=== PATIENT | female | born 1970 | race Caucasian/White ===

== ENCOUNTER 2019-05-30 12:49 | Outpatient (CLI) | payer MEDICARE, SELFPAY ==
--- NOTE | 2019-05-30 13:08 | ECG_ITS ---
Measurements Intervals [place] Rate: 59 P: 64 SD: 200 QRS: 58 QRSD: 109 T: 73 QT: 397 QTc: 395 Interpretive Statements SINUS BRADYCARDIA BORDERLINE AV CONDUCTION DELAY BORDERLINE ST ABNORMALITY- ANTEROLATERAL LEADS BORDERLINE ECG Electronically Signed On 05-30-2019 13:25:37 QC CHEMIST by Matt Mesa D.O.
== END 2019-05-30 12:50 | disposition home or self-care (01) ==
PROVIDERS: PCP Physician Assistant; Visit Provider Physician Assistant
DX: Z01.818 Encounter for other preprocedural examination (principal)
CPT/HCPCS: 93005

== ENCOUNTER 2019-11-14 17:29 | Emergency (ER) | payer MEDICARE, MEDICAID, SELFPAY ==
--- NOTE | ~2019-11-14 | XR_ITS ---
EXAMINATION: XR tibia fibula LT 2V DATE: 11/14/2019 18:14 INDICATION: Left lower leg pain and swelling. TECHNIQUE: 2 views of left tibia and fibula on 4 radiographs were obtained. COMPARISON: None. FINDINGS: Bone alignment is normal. No fracture. There is mild left knee osteoarthritis. IMPRESSION: 1. Mild left knee osteoarthritis. Reviewed, dictated and finalized at location A.
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
[2019-11-14 17:48] VITALS: BP 123/69; PULSE 89; RESP 18; TEMP 37.4; O2SAT 96
[2019-11-14] MEDS: NEOMYCIN/POLYMYXIN/BACITRACIN OINTMENT 15 GM TUBE 1 APPLIC TOPICAL (18:10)
== END 2019-11-14 18:49 | disposition home or self-care (01) ==
PROVIDERS: Emergency Provider Emergency Medicine; PCP Physician Assistant
DX: S80.12XA Contusion of left lower leg, initial encounter (principal); W22.8XXA Striking against or struck by other objects, initial encounter
CPT/HCPCS: 73590; 99283; A9270

== ENCOUNTER 2019-11-15 14:04 | Outpatient (CLI) | payer MEDICARE, MEDICAID, SELFPAY ==
--- NOTE | ~2019-11-15 | US_ITS ---
EXAMINATION:US venous doppler LE LT INDICATION:Left leg swelling TECHNIQUE: Multiple grayscale, color flow and Doppler images of the left lower extremity deep venous systems were obtained and reviewed. COMPARISON:No prior studies for comparison. FINDINGS: The common femoral, superficial femoral and popliteal veins demonstrate normal respiratory variation, augmentation and compressibility. Color flow is also seen within the posterior tibial, pe roneal, greater saphenous and profunda veins. IMPRESSION: 1: No lower extremity deep venous thrombosis. Reviewed, dictated and finalized at location B.
== END 2019-11-15 14:05 | disposition home or self-care (01) ==
LOC: CHSIMG 14:04
PROVIDERS: PCP Physician Assistant; Visit Provider Physician Assistant
DX: R60.0 Localized edema (principal)
CPT/HCPCS: 93971

== ENCOUNTER 2019-12-18 14:05 | Emergency (ER) | payer MEDICARE, MEDICAID, SELFPAY ==
[2019-12-18 14:39] VITALS: BP 160/70; PULSE 66; RESP 17; TEMP 36.4; O2SAT 95
[2019-12-18] MEDS: cefTRIAXone 1 GM VIAL IM (15:28)
[2019-12-18 15:43] LABS: Hematocrit 41.3 % (35.0-49.0); Hemoglobin 13.6 g/dL (12.0-15.0); Mean Corpuscular HGB Conc 32.9 g/dL (32.0-36.0); Mean Corpuscular Hemoglobin 30.8 pg (27.0-31.0); Mean Corpuscular Volume 93.4 fL (78.0-102.0); Platelet Count Result 175 K/mm3 (150-420); Red Blood Count 4.42 M/mm3 (4.20-5.40); White Blood Count 3.2 K/mm3 (4.8-10.8)
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
[2019-12-18 16:20] VITALS: RESP 15
== END 2019-12-18 16:21 | disposition home or self-care (01) ==
PROVIDERS: Emergency Provider Emergency Medicine; PCP Physician Assistant
DX: S81.802A Unspecified open wound, left lower leg, initial encounter (principal)
CPT/HCPCS: 36415; 85027; 87040; 96372; 99282; 99283; J0696

== ENCOUNTER 2021-06-24 18:58 | Emergency (ER) | payer OTHER, SELFPAY ==
--- NOTE | ~2021-06-24 | CT_ITS ---
EXAMINATION: CT lumbar spine wo con DATE: 06/24/2021 19:59 INDICATION: Low back pain TECHNIQUE: Computed tomography (CT) of the lumbar spine was performed without intravenous contrast. T he dose-length product (DLP) was 900.61 mGy-cm. Iterative reconstruction was used. COMPARISON: None FINDINGS: There is no fracture, dislocation, or subluxation. The vertebral body heights are normal. T here is moderate loss of intervertebral disc space height at L4-5 and mild loss of disc space height at L3-4. IMPRESSION: 1. Moderate lumbar spondylosis without acute findings or significant interval change. Reviewed, dictated and finalized at location F. ISION GRINDER EXTERNAL IMPRESSION: 1. Moderate lumbar spondylosis without acute findings or significant interval rosy barrett.
--- NOTE | ~2021-06-24 | CT_ITS ---
EXAMINATION: CT pelvis wo con DATE: 06/24/2021 20:00 INDICATION: Left lower back pain TECHNIQUE: Computed tomography (CT) of the pelvis was performed without intravenous contrast. The dos e-length product (DLP) was 900.61 mGy-cm. Automated exposure control and iterative reconstruction bobby hnique were employed. COMPARISON: None FINDINGS: Bone alignment is normal. There is no fracture. There is moderate spondylosis of the lumbar spine. There is a 3.7 x 3.6 cm calcified pedunculated fibroid projecting into the left adnexa. IMPRESSION: 1. No acute osseous abnormality. Reviewed, dictated and finalized at location F. ERCIAL TECHNICIAN
[2021-06-24 19:07] VITALS: BP 142/95; PULSE 84; RESP 16; TEMP 36.8; O2SAT 98
--- NOTE | 2021-06-24 19:38 | ED.BACK ---
HPI - Back Pain/Injury General Chief Complaint: Back Pain/Injury Stated Complaint: back injury Time Seen by Provider: 06/24/21 18:59 Source: patient and RN notes reviewed Mode of arrival: ambulatory Limitations: no limitations History of Present Illness MD elicited complaint: back pain, back injury and fall Pertinent past history: prior back pain and back surgery Onset (ago): day(s) (4) Timing: constant Severity: moderate Pain scale (0-10): 7 Similar Symptoms Previously: Yes Quality: dull and aching Location: lumbar spine, sacrum and left lower back Radiation: buttocks and left leg below the knee Exacerbating factors: movement Relieving factors: medication Context: fall Associated symptoms: denies other symptoms Work related injury: No Related Data Home Medications Medication Instructions Recorded Confirmed diclofenac sodium 75 mg PO BID 04/13/19 06/24/21 gabapentin 300 mg PO TID 04/13/19 06/24/21 levothyroxine 75 mcg PO DAILY 04/13/19 06/24/21 meloxicam 15 mg PO DAILY 04/13/19 06/24/21 Allergies Allergy/AdvReac Type Severity Reaction Status Date / Time alendronate sodium Allergy Unknown Unknown Verified 06/24/21 19:20 kiwi Allergy Unknown Unknown Verified 06/24/21 19:20 tramadol Allergy Unknown Unknown Verified 06/24/21 19:20 trazodone Allergy Unknown Unknown Verified 06/24/21 19:20 bee venom protein (honey bee) Allergy Unknown Verified 06/24/21 19:20 [bees] Review of Systems Review of Systems: All systems reviewed & are unremarkable except as noted in HPI and below PMFSH Past Medical History Medical History Anemia Arthritis Back pain Hypothyroidism Sciatica Family History Family History Mother Family history of diabetes mellitus in first degree relative, Onset Age: 60 Patient's mother is Social History Social History Smoking status: Heavy tobacco smoker Second hand tobacco smoke exposure: No Alcohol intake: never Exam Const: General: no acute distress and alert Nutritional Appearance: well nourished Orientation/consciousness: patient oriented x3 Limitations: no limitations HENMT: Head: normal to inspection Ears: external ears normal, TM's normal bilaterally and EAC's normal General nose exam: Normal external nose present and Normal nares present Face and sinus: sinuses nontender Mouth: Yes moist mucous membranes Eyes: Conjunctivae: conjunctivae normal Pupils: Equal, round and reactive pupils present EOM: EOMs intact bilaterally Neck: Neck: normal visual inspection and no lymphadenopathy Other: neck supple. Chest: Chest palpation & inspection: normal inspection of the chest Resp: Effort & Inspection: normal respiratory effort Auscultation: clear to auscultation bilaterally Cardio: Rate: regular rate Rhythm: regular rhythm GI: GI Palp: Yes Soft to palpation and No Tenderness to palpation present (GI) : General: Yes bladder normal to palpation and Yes no CVA tenderness Back/Spine/Pelvis: Back: no CVA tenderness Skin: General skin exam: normal color Rashes: no rashes Neuro: General: patient oriented x3, moves all extremities, no meningeal signs, no focal motor deficits and CN's II-XI intact bilaterally Extrem: General: normal to inspection and no pedal edema Psych: Appearance: grossly normal and well kempt Mental Status: mental status grossly normal Affect: normal affect Thought content: Yes Normal thought content present Course Course Emergency Course: Pt was stable in the ED. less painful. Reevaluation(s) Reevaluation #1: VSS. normal ambulation. Date: 06/24/21 Time: 19:55 Vital Signs Vital signs: Vital Signs Temperature 36.8 C 06/24/21 19:07 Pulse Rate 84 06/24/21 19:07 Respiratory Rate 16 06/24/21 19:07 Blood Pressure 142/95 H 06/24/21 19:07 Pulse O
[2021-06-24] MEDS: KETOROLAC (*BKC) 60 MG/2 ML VIAL IM (19:45)
[2021-06-24 20:57] VITALS: BP 137/93; PULSE 76; RESP 16; TEMP 36.7; O2SAT 96
== END 2021-06-24 21:02 | disposition home or self-care (01) ==
PROVIDERS: Emergency Provider Emergency Medicine; PCP Physician Assistant
DX: M54.30 Sciatica, unspecified side (principal); E03.9 Hypothyroidism, unspecified; F17.200 Nicotine dependence, unspecified, uncomplicated
CPT/HCPCS: 72131; 72192; 96372; 99284; J1885

== ENCOUNTER 2022-07-09 14:36 | Emergency (ER) | payer MEDICARE, MEDICAID, SELFPAY ==
[2022-07-09 15:53] VITALS: BP 147/88; PULSE 80; RESP 15; TEMP 36.6; O2SAT 98
[2022-07-09 16:25] LABS: Basophils Absolute Auto 0.1 K/mm3 (0.0-0.1); Basophils Percent Auto 0.7 % (0.2-1.2); Eosinophils Absolute Auto 0.1 K/mm3 (0-0.3); Eosinophils Percent Auto 0.9 % (0-4.4); Hematocrit 44.8 % (37.0-47.0); Immature Granulocyte Absolute 0.02 K/mm3 (0.00-0.031); Immature Granulocyte Percent A 0.2 % (0-0.5); Lymphocytes Absolute Auto 1.07 K/mm3 (0.9-3.2); Lymphocytes Percent Auto 12.4 % (18.3-44.2); Mean Corpuscular HGB Conc 31.3 g/dl (32-36); Mean Corpuscular Hemoglobin 28.5 pg (26-34); Mean Corpuscular Volume 91.2 fl (80-100); Mean Platelet Volume 10.8 fl (7.4-10.4); Monocytes Absolute Auto 0.4 K/mm3 (0.1-0.6); Monocytes Percent Auto 4.2 % (2.6-8.5); Neutrophils Percent Auto 81.6 % (45.5-73.1); Platelet Count Result 289 k/mm3 (150-375); Red Blood Count 4.91 M/mm3 (4.2-5.4); Red Cell Distribution Width 14.7 % (11.5-14.5); White Blood Count 8.6 K/mm3 (4.5-10.0)
[2022-07-09 16:30] LABS: Prothrombin Time 12.3 Seconds (11.1-14.7)
[2022-07-09 16:31] LABS: Partial Thromboplastin Time 25.7 SECONDS (22.3-36.8)
[2022-07-09 16:31] LABS: Alanine Aminotransferase 23 U/L (6-35); Albumin Level 4.7 g/dL (3.5-5.1); Alkaline Phosphatase 79 U/L (38-126); Anion Gap 6 mmol/L (8-16); Aspartate Amino Transferase 27 U/L (14-36); Bilirubin,Total 0.7 mg/dL (0.2-1.3); Blood Urea Nitrogen 19 mg/dL (7-17); Calcium 10.2 mg/dL (8.4-10.2); Carbon Dioxide 30 mmol/L (22-30); Chloride 103 mmol/L (98-107); Estimated CRCL calculation 66 ml/min; Estimated Glomerular Filt Rate > 60; Glucose 74 mg/dL (65-110); Lipase 62 U/L (23-300); Potassium 3.6 mmol/L (3.4-5.0); Sodium 139 mmol/L (137-145)
== END 2022-07-09 15:53 | disposition left against medical advice (07) ==
PROVIDERS: Emergency Provider Emergency Medicine; PCP Family Medicine
DX: R10.9 Unspecified abdominal pain (principal)
CPT/HCPCS: 36415; 80053; 83690; 85025; 85610; 85730; 99199

== ENCOUNTER 2022-07-10 08:23 | Emergency (ER) | payer MEDICARE, MEDICAID, SELFPAY ==
--- NOTE | ~2022-07-10 | CT_ITS ---
Non-contrast CT scan of the Abdomen and Pelvis Clinical indication: Abdominal pain Technique: 2.5 mm axial scans were obtained through the abdomen and pelvis without intravenous or or al contrast. Dose reduction technique was used on this scan by utilizing automated exposure control a nd iterative reconstruction technique. The dose-length product (DLP) was 503.02 mGy-cm. Findings: Images through the lung bases reveal no abnormalities. There is a moderate to large subcapsular fluid collection along the lateral margin of the spleen, wit h Hounsfield units in the range of 40, consistent with subcapsular hematoma. This collection measures approximately 7.4 x 5.0 x 7.4 cm in extent. The liver, kidneys, pancreas, gallbladder, and adrenals appear normal. There is no aortic aneurysm. There is no evidence of bowel obstruction. Sigmoid diverticulosis noted. There is a 6.6 x 4.9 x 8.7 c m hyperdense hematoma of the right rectus abdominis muscle. Images through the pelvis were performed. There is no evidence of ascites or lymphadenopathy. Urinary bladder unremarkable. 4.2 cm densely calcified exophytic fibroid noted. Questional small amount of h emorrhagic ascites in the pelvis. Impression: Moderate to large subcapsular hemorrhage/hematoma of the spleen. 6.6 x 4.9 x 8.7 cm right rectus abdominis intramuscular hematoma. Consider contrast enhanced CT/CT angiogram to assess for active extravasation at either hemorrhage, a nd/or underlying splenic laceration. Questionable minimal amount of hemorrhagic ascites in the pelvis. Uterine fibroid, as above. Case discussed with Dr. Lemos at the time of this reading. Reviewed, dictated and finalized at location . ESTRIAL ECOLOGIST Impression: Moderate to large subcapsular hemorrhage/hematoma of the spleen. 6.6 x 4.9 x 8.7 cm right rectus abdominis intramuscular hematoma. Consider contrast enhanced CT/CT angiogram to assess for active extravasation a t either hemorrhage, and/or underlying splenic laceration. Questionable minimal amount of hemorrhagic ascites in the pelvis. Uterine fibroid, as above. Case discussed with Dr. Lemos at the time of this reading.
[2022-07-10 08:23] VITALS: BP 145/94; PULSE 88; RESP 18; TEMP 36.4; O2SAT 100
--- NOTE | 2022-07-10 09:14 | ED.GENADULT ---
HPI - General Adult General Chief complaint: Skin/Abscess/Foreign Body Stated complaint: abdominal bruising Time Seen by Provider: 07/10/22 08:30 History of Present Illness HPI narrative: The patient is a 51-year-old woman who takes diclofenac on a daily basis for lower back pain. She has history of anemia. Also history of sciatica, hypothyroidism, and osteoarthritis. For the last 2 days, the patient has had right lower quadrant abdominal pain, associated now with bruising in the infraumbilical region that extends to the suprapubic region and down to the groin region centrally. No history of trauma or falls or heavy lifting. No history of spontaneous bruising in the past. She went to [facility] yesterday to get this evaluated, blood work was ordered but she left before being seen. Blood work reveals a normal hemoglobin yesterday of 14.0 with hematocrit of 44.8, normal white blood cell count of 8.6 The MCV is normal at 91, and the platelets are normal at 289. The PT PTT yesterday was normal. The CMP was unremarkable. Amylase and lipase yesterday were normal. She continues to have discomfort in the right lower quadrant. The bruising has not increased but is still present. He presents for further evaluation. No other associated symptoms such as nausea vomiting fevers or chills or UTI or URI symptoms. Related Data Home Medications Medication Instructions Recorded Confirmed diclofenac sodium 75 mg 75 mg PO BID 04/13/19 07/10/22 tablet,delayed release gabapentin 300 mg capsule 300 mg PO TID 04/13/19 07/10/22 levothyroxine 75 mcg tablet 75 mcg PO DAILY 04/13/19 07/10/22 cyclobenzaprine 10 mg tablet 10 mg PO TID 07/10/22 07/10/22 Allergies Allergy/AdvReac Type Severity Reaction Status Date / Time alendronate sodium Allergy Unknown Unknown Verified 07/09/22 14:38 kiwi Allergy Unknown Unknown Verified 07/09/22 14:38 tramadol Allergy Unknown Unknown Verified 07/09/22 14:38 trazodone Allergy Unknown Unknown Verified 07/09/22 14:38 bee venom protein (honey bee) Allergy Unknown Verified 07/09/22 14:38 [bees] Review of Systems Review of Systems: All systems reviewed & are unremarkable except as noted in HPI and below Constitutional: Constitutional: Reports as per HPI, Reports no additional constitutional complaints, Denies chills, Denies excessive sweating, Denies fatigue, Denies fever(s), Denies headache(s) and Denies weakness Eyes: Eyes: Reports as per HPI, Reports no additional eye complaints, Denies change in vision and Denies photophobia ENT: Reports system reviewed and no additional complaints, except as documented, Reports as per HPI, Denies dysphagia, Denies vertigo, Denies dizziness, Denies headache(s), Denies lip swelling, Denies nasal congestion, Denies sore throat, Denies throat swelling and Denies tongue swelling Cardiovascular: Cardiovascular: Reports as per HPI, Reports no additional cardiovascular complaints, Denies chest pain, Denies syncope, Denies rapid heart rate and Denies dyspnea Respiratory: Respiratory: Reports as per HPI, Reports no additional respiratory complaints, Denies chest congestion, Denies cough, Denies dyspnea and Denies wheezing Gastrointestinal: Gastrointestinal: Reports as per HPI, Reports no additional gastrointestinal complaints, Reports abdominal pain, Denies constipation, Denies dysphagia, Denies diarrhea, Denies nausea and Denies vomiting Genitourinary: Genitourinary: Reports as per HPI, Denies hematuria, Denies urinary frequency, Denies dysuria, Denies urinary incontinence and Denies urinary urgency Musculoskeletal: Musculoskeletal: Reports no additional musculoskeletal complaints, Reports back pain ( Chronic), Denies myalgias, Denies arthralgias, Denies joint swelling and Denies numbness Integumentary/Breasts: Skin/Breast: Reports system reviewed and no additional complaints, except as docu, Denies pruritus, Denies erythema, Denies rash, Denies skin ulcer and Reports unusual bruis
[2022-07-10 09:23] LABS: Basophils Absolute Auto 0.05 K/mm3 (0.00-0.10); Basophils Percent Auto 0.6 % (0.0-1.0); Eosinophils Absolute Auto 0.07 K/mm3 (0.02-0.50); Eosinophils Percent Auto 0.8 % (1.0-6.0); Hematocrit 41.2 % (35.0-49.0); Hemoglobin 12.9 g/dL (12.0-15.0); Immature Granulocyte Absolute 0.04 K/mm3 (0.00-0.00); Immature Granulocyte Percent A 0.5 % (0.0-0.0); Lymphocytes Absolute Auto 0.87 K/mm3 (1.10-4.50); Lymphocytes Percent Auto 9.8 % (18.0-42.0); Mean Corpuscular HGB Conc 31.3 g/dL (32.0-36.0); Mean Corpuscular Hemoglobin 28.5 pg (27.0-31.0); Mean Corpuscular Volume 91.2 fL (78.0-102.0); Mean Platelet Volume 10.4 fl (9.2-11.8); Monocytes Absolute Auto 0.49 K/mm3 (0.10-0.90); Monocytes Percent Auto 5.5 % (2.0-11.0); Neutrophils Absolute Auto 7.3 K/mm3 (1.7-7.2); Neutrophils Percent Auto 82.8 % (50.0-70.0); Platelet Count Result 254 K/mm3 (150-420); Red Blood Count 4.52 M/mm3 (4.20-5.40); Red Cell Distribution Width 14.6 % (11.6-14.4); White Blood Count 8.9 K/mm3 (4.8-10.8)
[2022-07-10 09:37] LABS: Alanine Aminotransferase 24 U/L (14-59); Albumin Level 3.8 g/dL (3.4-5.0); Alkaline Phosphatase 85 U/L (46-116); Amylase 52 U/L (25-115); Anion Gap 9 mmol/L (8-16); Aspartate Amino Transferase 19 U/L (15-37); Bilirubin,Total 0.6 mg/dL (0.00-1.00); Blood Urea Nitrogen 18 mg/dL (7-18); Calcium 9.2 mg/dL (8.5-10.1); Carbon Dioxide 28 mmol/L (21-32); Chloride 104 mmol/L (98-108); Estimated CRCL calculation 86 ml/min; Estimated Glomerular Filt Rate > 60; Glucose 122 mg/dL (70-99); Lipase 27 U/L (16-77); Osmolality Calculated 294 mOsm/kg (285-295); Potassium 3.7 mmol/L (3.5-5.1); Sodium 141 mmol/L (136-145); Total Protein 6.9 g/dL (6.4-8.2)
[2022-07-10 09:38] LABS: Partial Thromboplastin Time 26.5 SEC (23.90-30.70); Prothrombin Time 11.1 Seconds (9.50-12.10)
[2022-07-10 09:50] LABS: SPREG INTERNAL CONTROL Positive; Serum Qual hCG Negative
[2022-07-10 10:00] VITALS: BP 125/80; PULSE 76; RESP 16; O2SAT 95
[2022-07-10 10:17] LABS: Appearance Urine Slightly Cloudy (Clear); Bilirubin Urine Negative (Negative); Blood Urine Negative (Negative); Color Urine Light Yellow (Yellow); Glucose Urine UA Negative (Negative); Ketones Urine Negative (Negative); Leukocyte Esterase Ur Trace LEU/UL (Negative); Nitrate Urine Positive (Negative); Protein Urine Negative (Negative); Urobilinogen Urine 0.2 mg/dL (0.2-1.0); pH Urine 6.5 (5.0-8.0)
[2022-07-10 10:22] LABS: Add Urine Microscopic? YES; Bacteria Urine 4+ /hpf; RBC Urine None seen /hpf (0-2); Squamous Epithelial Cell Urine Moderate /hpf (Few)
[2022-07-10 10:25] LABS: SARS-CoV-2 Ag Negative (Negative)
--- NOTE | 2022-07-12 14:59 | PC.NURSE ---
final urine culture report reviewed. >100,000 E. coli isolated. pt was prescribed keflex at discharge. this is appropriate treatment per dr shetty. no change in plan of care.
--- NOTE | 2022-07-22 10:37 | PC.NURSE ---
addendum: 07-10-22 1045 PT SIGNED OUT AMA. PROVIDER--DR WALLER NOTIFIED. PT AND BOYFRIEND AWAITING TRANSFER TO [facility]. DECISION MADE TO LEAVE AMA. PT AND BOYFRIEND WALKING TOWARDS DOOR TO LEAVE. DISCUSSED WITH PT IMPORTANCE OF TRANSFER AND DIAGNOSIS CAN BE LIFE THREATENING. PT AND BOYFRIEND AT NURSES DESK, DR WALLER DISCUSSED AT [facility] RISKS AND BENEFITS OF SIGNING OUT AMA. PT AND BOYFRIEND VOICED THAT THEY HAD [employer] TICKETS FOR THE EVENING AND DID NOT WANT TO MISS THE EVENT. AFTER DISCUSSING WITH DR WALLER. CONTINUE TO WANT TO SIGN OUT AMA. AMA FORM FILLED OUT PER DR WALLER AND SIGNED. PT SIGNED AND WITNESSED PER THIS SURVEILLANCE DUAL RATE OFFICER. DR WALLER AND THIS SURVEILLANCE DUAL RATE OFFICER INSTRUCTED PT TO GO TO [facility] ER IMMEDIATELY IF ANY BLEEDING OR CHANGE IN CONDITION. ALSO INSTRUCTED PER DR WALLER TO STOP DICLOFENAC, PT VOICED UNDERSTANDING. [facility] NOTIFIED OF PT SIGNING OUT AMA.
== END 2022-07-10 10:50 | disposition left against medical advice (07) ==
PROVIDERS: Emergency Provider Emergency Medicine; PCP Family Medicine
DX: D73.5 Infarction of spleen (principal); N39.0 Urinary tract infection, site not specified; E03.9 Hypothyroidism, unspecified; F17.200 Nicotine dependence, unspecified, uncomplicated; Z20.822 Contact with and (suspected) exposure to COVID-19
CPT/HCPCS: 36415; 74176; 80053; 81001; 82150; 83690; 84703; 85025; 85610; 85730; 87077; 87086; 87088; 87186; 87426; 99284; C9803

== ENCOUNTER 2022-07-10 22:47 | Emergency (ER) | payer MEDICARE, MEDICAID, SELFPAY ==
--- NOTE | ~2022-07-10 | CT_ITS ---
EXAMINATION: CTA abdomen pelvis DATE: 07/11/2022 02:27 INDICATION: Left-sided abdominal pain. TECHNIQUE: Computed tomographic angiography (CTA) of the chest, abdomen and pelvis was performed with 125 mL Omnipaque-350 intravenous contrast. Additional 3D reconstructions utilizing rotating maximum intensity projection (MIP) were performed. Automated exposure control and iterative reconstruction te chnique were employed. The dose-length product was 922.49 mGy-cm. COMPARISON: None FINDINGS: Chest: Mild dependent atelectasis in the bilateral lower lobes and lingula. No pneumonia, pulmonary edema or pleural effusion. Heart size is normal. No pericardial or pleural effusion. Thoracic aorta is normal in caliber with no dissection. No pathologically enlarged thoracic lymphadenopathy. Mild to moderate thoracic spondylosis. Abdomen and pelvis: Liver, gallbladder, pancreas, bilateral adrenal glands and left kidney are normal. Small focal region of cortical scarring at the mid right kidney likely sequela of prior infection or infarction. No sig nificant interval change in a 7.7 x 6.7 x 5.0 cm loculated subcapsular hematoma along the posterolate ral margin of the spleen extending from a loop splenic laceration which measures 3 cm in depth. No ev ident active contrast extravasation. There is moderate colonic diverticulosis with a sigmoid predomin ance. There is no adjacent inflammatory change to suggest diverticulitis. Small bowel and appendix are normal. Also unchanged is a nonloculated small amount of hemoperitoneum in the cul-de-sac. 3.5 cm calcified fibroid seen posteriorly from the uterine fundus. Bladder is normal. Bilateral adnexa are unremarkable. 9.0 x 6.4 x 2.2 cm lenticular hematoma within the right rectus abdominous muscle also w ithout active contrast extravasation. Subcutaneous scarring in the anterior pelvic wall. No pathologi kirsten enlarged abdominal or pelvic lymphadenopathy. Moderate to severe spondylosis at L4-L5. IMPRESSION: 1. No significant change in an AAST grade 3 splenic laceration with 3 cm deep splenic laceration with moderate to large subcapsular hematoma. No active contrast extravasation. 2. Unchanged second hematoma within the right rectus abdominis muscle also without active extravasati on. 3. Unchanged small amount of hemoperitoneum in the cul-de-sac. 4. Calcified uterine fibroid. Reviewed, dictated and finalized at location A. ITECTURAL ASSOCIATE IMPRESSION: 1. No significant change in an AAST grade 3 splenic laceration with 3 cm deep s plenic laceration with moderate to large subcapsular hematoma. No active contra st extravasation. 2. Unchanged second hematoma within the right rectus abdominis muscle also with out active extravasation. 3. Unchanged small amount of hemoperitoneum in the cul-de-sac. 4. Calcified uterine fibroid.
[2022-07-10 22:55] VITALS: BP 149/94; PULSE 74; RESP 14; TEMP 36.4; O2SAT 93
[2022-07-10 23:09] VITALS: RESP 18
[2022-07-11] VITALS (32 sets, daily range): BP systolic 110–159; BP diastolic 72–92; PULSE 56–86; RESP 12–21; TEMP 36.6–37.2; O2SAT 91–100
[2022-07-11 00:34] LABS: Basophils Absolute Auto 0.1 K/mm3 (0.0-0.1); Basophils Percent Auto 0.8 % (0.2-1.2); Eosinophils Absolute Auto 0.2 K/mm3 (0-0.3); Eosinophils Percent Auto 3.7 % (0-4.4); Hematocrit 40.6 % (37.0-47.0); Hemoglobin 12.8 g/dL (12.0-15.0); Immature Granulocyte Absolute 0.02 K/mm3 (0.00-0.031); Immature Granulocyte Percent A 0.3 % (0-0.5); Lymphocytes Absolute Auto 1.05 K/mm3 (0.9-3.2); Mean Corpuscular HGB Conc 31.5 g/dl (32-36); Mean Corpuscular Hemoglobin 29.2 pg (26-34); Mean Corpuscular Volume 92.7 fl (80-100); Mean Platelet Volume 10.3 fl (7.4-10.4); Monocytes Absolute Auto 0.5 K/mm3 (0.1-0.6); Neutrophils Absolute Auto 4.3 K/mm3 (1.3-6.7); Neutrophils Percent Auto 70.2 % (45.5-73.1); Platelet Count Result 229 k/mm3 (150-375); Red Blood Count 4.38 M/mm3 (4.2-5.4); Red Cell Distribution Width 14.7 % (11.5-14.5); White Blood Count 6.2 K/mm3 (4.5-10.0)
[2022-07-11 00:43] LABS: Lactic Acid Reflex 0.6 mmol/L (0.7-2.0)
[2022-07-11 00:49] LABS: Prothrombin Time 12.8 Seconds (11.1-14.7)
[2022-07-11 00:50] LABS: Partial Thromboplastin Time 26.8 SECONDS (22.3-36.8)
[2022-07-11 01:28] LABS: Alanine Aminotransferase 20 U/L (6-35); Albumin Level 4.1 g/dL (3.5-5.1); Alkaline Phosphatase 79 U/L (38-126); Anion Gap 4 mmol/L (8-16); Aspartate Amino Transferase 25 U/L (14-36); Bilirubin,Total 0.6 mg/dL (0.2-1.3); Blood Urea Nitrogen 18 mg/dL (7-17); Calcium 8.9 mg/dL (8.4-10.2); Carbon Dioxide 26 mmol/L (22-30); Chloride 104 mmol/L (98-107); Estimated CRCL calculation 96 ml/min; Estimated Glomerular Filt Rate > 60; Glucose 117 mg/dL (65-110); Potassium 3.7 mmol/L (3.4-5.0); Sodium 134 mmol/L (137-145)
--- NOTE | 2022-07-11 02:03 | ED.GENADULT ---
HPI - General Adult General Chief complaint: Unspecified Stated complaint: back pain Time Seen by Provider: 07/10/22 23:40 History of Present Illness HPI narrative: Patient 51-year-old female who presents to the emergency department with chief complaint of possible splenic injury. The patient was seen earlier today at [place] patient was found to have a hematoma around the spleen and a abdominal wall hematoma. Patient reports that she was to be transferred to [facility] but left AMA from [place]. The patient came to our facility for reevaluation after her abdominal pain got worse. Related Data Home Medications Medication Instructions Recorded Confirmed diclofenac sodium 75 mg 75 mg PO BID 04/13/19 07/10/22 tablet,delayed release gabapentin 300 mg capsule 300 mg PO TID 04/13/19 07/10/22 levothyroxine 75 mcg tablet 75 mcg PO DAILY 04/13/19 07/10/22 cyclobenzaprine 10 mg tablet 10 mg PO TID 07/10/22 07/10/22 Allergies Allergy/AdvReac Type Severity Reaction Status Date / Time alendronate sodium Allergy Unknown Unknown Verified 07/10/22 23:00 kiwi Allergy Unknown Unknown Verified 07/10/22 23:00 tramadol Allergy Unknown Unknown Verified 07/10/22 23:00 trazodone Allergy Unknown Unknown Verified 07/10/22 23:00 bee venom protein (honey bee) Allergy Unknown Verified 07/10/22 23:00 [bees] diclofenac AdvReac Unknown Verified 07/10/22 23:00 Review of Systems Review of Systems: A 10 system review of systems was completed on the patient and is negative except for what is stated in the HPI. Nursing and ancillary documentation was reviewed. [facility] Past Medical History Medical History Anemia Arthritis Back pain Hypothyroidism Sciatica Family History Family History Mother Family history of diabetes mellitus in first degree relative, Onset Age: 60 Patient's mother is Social History Social History Smoking status: Heavy tobacco smoker Second hand tobacco smoke exposure: No Alcohol intake: never Exam Narrative: GENERAL: Well-appearing, well-nourished, and in no acute distress. HEAD: Normocephalic, atraumatic. EYES: PERRLA and EOMI. ENT: Nares clear, no rhinorrhea or epistaxis. Mucous membranes moist. NECK: Supple. CHEST: Clear to auscultation. No respiratory distress. HEART: Regular rate and rhythm. No murmur heard. Normal peripheral pulses. ABDOMEN: Soft, mild tenderness to palpation, nondistended, normal active bowel sounds. EXTREMITIES: Normal range of motion. No edema. SKIN: Warm, dry, no rash. There is bruising present in the suprapubic region NEURO: No focal deficits. Alert and oriented x3. PSYCH: Normal mood and affect. Course Vital Signs Vital signs: Vital Signs Temperature 36.4 C 07/10/22 22:55 Pulse Rate 74 07/10/22 22:55 Respiratory Rate 14 07/10/22 22:55 Blood Pressure 149/94 H 07/10/22 22:55 Pulse Oximetry 93 07/10/22 22:55 Oxygen Delivery Room Air 07/10/22 22:55 Temperature 37.2 C 07/11/22 04:47 Pulse Rate 79 07/11/22 04:47 Respiratory Rate 18 07/11/22 04:47 Blood Pressure 111/77 07/11/22 04:47 Pulse Oximetry 99 07/11/22 04:47 Oxygen Delivery Room Air 07/10/22 22:55 Medical Decision Making [facility] Narrative Medical decision making narrative: Differential diagnosis includes worsening splenic hematoma, worsening abdominal wall hematoma. Generalized abdominal pain gastroenteritis, Laboratory studies were ordered and reviewed patient's hemoglobin was currently 12.8 it was 12.9 when she was seen at the other facility and 14 a day ago. Patient had a normal lactate and normal coagulation studies CT scan of the abdomen pelvis under angiography technique showed no contrast extravasation there is an 8.5 x 4.8 x 7.9 fluid collection arou
[2022-07-11] MEDS: MORPHINE SULFATE (*CRX) 4 MG/ML INJ IV PUSH (03:40)
[2022-07-11 05:52] LABS: Influenza A QL RT-PCR Negative (Negative); Influenza B QL RT-PCR Negative (Negative); SARS-CoV-2 RNA PCR Negative
--- NOTE | 2022-07-11 10:17 | PC.NURSE ---
[facility] accepted transfer to [facility] ETA 1030 Trip #[id number]
== END 2022-07-11 10:58 | disposition short-term general hospital (02) ==
PROVIDERS: Emergency Provider Emergency Medicine; PCP Family Medicine
DX: S36.029A Unspecified contusion of spleen, initial encounter (principal); S36.892A Contusion of other intra-abdominal organs, initial encounter; X58.XXXA Exposure to other specified factors, initial encounter; D64.9 Anemia, unspecified; M19.90 Unspecified osteoarthritis, unspecified site; E03.9 Hypothyroidism, unspecified
CPT/HCPCS: 36415; 74174; 80053; 83605; 85025; 85610; 85730; 86850; 86900; 86901; 87636; 96374; 99285; J2270; J2405; Q9967

== ENCOUNTER 2022-07-29 10:42 | Outpatient (CLI) | payer MEDICARE, MEDICAID, SELFPAY ==
[2022-07-29 10:52] LABS: Hematocrit 47.9 % (35.0-49.0); Hemoglobin 15.4 g/dL (12.0-15.0); Mean Corpuscular HGB Conc 32.2 g/dL (32.0-36.0); Mean Corpuscular Hemoglobin 29.4 pg (27.0-31.0); Mean Corpuscular Volume 91.6 fL (78.0-102.0); Mean Platelet Volume 10.2 fl (9.2-11.8); Platelet Count Result 297 K/mm3 (150-420); Red Blood Count 5.23 M/mm3 (4.20-5.40); Red Cell Distribution Width 14.5 % (11.6-14.4)
[2022-07-29 11:59] LABS: Alanine Aminotransferase 28 U/L (14-59); Albumin Level 3.9 g/dL (3.4-5.0); Alkaline Phosphatase 83 U/L (46-116); Anion Gap 10 mmol/L (8-16); Aspartate Amino Transferase 19 U/L (15-37); Bilirubin,Total 0.2 mg/dL (0.00-1.00); Blood Urea Nitrogen 15 mg/dL (7-18); Calcium 9.3 mg/dL (8.5-10.1); Carbon Dioxide 26 mmol/L (21-32); Chloride 107 mmol/L (98-108); Cholesterol 195 mg/dL (0-200); Estimated Glomerular Filt Rate > 60; Glucose 92 mg/dL (70-99); HDL Direct 67 mg/dL (40-60); LDL Cholesterol Calculated 111 mg/dL (<130); Osmolality Calculated 296 mOsm/kg (285-295); Potassium 4.5 mmol/L (3.5-5.1); Sodium 143 mmol/L (136-145); Thyroid Stimulating Hormone 3.47 uIU/mL (0.36-3.74); Total Protein 6.9 g/dL (6.4-8.2); Triglycerides 83 mg/dL (0-150)
== END 2022-07-29 10:43 | disposition home or self-care (01) ==
LOC: CHSLAB 10:44
PROVIDERS: PCP Family Medicine; Visit Provider Nurse Practitioner Family
DX: E03.9 Hypothyroidism, unspecified (principal); D64.9 Anemia, unspecified
CPT/HCPCS: 36415; 80053; 80061; 84443; 85027

== ENCOUNTER 2022-07-31 07:56 | Outpatient (CLI) | payer MEDICARE, MEDICAID, SELFPAY ==
--- NOTE | ~2022-07-31 | US_ITS ---
US abdomen limited DATE: 07/31/2022 08:14 INDICATION: Splenic laceration follow-up TECHNIQUE: Real-time and color flow imaging of the spleen COMPARISON: 07/12/2019. CTA abdomen pelvis FINDINGS: Again noted is splenic laceration and hematoma. Hematoma size appears diminished since 07/11. IMPRESSION: Splenic laceration Reviewed, dictated and finalized at [facility]. Reviewed, dictated and finalized at location [facility]. IMPRESSION: Splenic laceration
== END 2022-07-31 07:57 | disposition home or self-care (01) ==
LOC: CHSIMG 07:58
PROVIDERS: PCP Family Medicine; Visit Provider Nurse Practitioner Family
DX: S36.039A Unspecified laceration of spleen, initial encounter (principal); S36.029A Unspecified contusion of spleen, initial encounter
CPT/HCPCS: 76705

== ENCOUNTER 2022-08-10 12:24 | Outpatient (CLI) | payer MEDICARE, MEDICAID, SELFPAY ==
--- NOTE | ~2022-08-10 | MM_ITS ---
EXAMINATION: MM screening raymundo BI w cesar HISTORY: Screening mammogram TECHNIQUE: Craniocaudal and mediolateral oblique 3-D tomosynthesis images were obtained and synthetic 2-D images were generated. CAD analysis was submitted and interpreted. COMPARISON: 12/12/2018, 11/19/2017, 11/13/2016 bilateral screening mammogram examinations BREAST PARENCHYMAL COMPOSITION: There are scattered areas of fibroglandular density. FINDINGS: There is no evidence of suspicious mass, calcification, or architectural distortion to sugg est malignancy in either breast. There has been no suspicious interval change. IMPRESSION: 1. No mammographic evidence of malignancy. 2. Recommend routine screening mammography in one year. BI-RADS Category 1: Negative Reviewed, dictated and finalized at location A.
== END 2022-08-10 12:25 | disposition home or self-care (01) ==
LOC: CHSIMG 12:25
PROVIDERS: PCP Family Medicine; Visit Provider Family Medicine
DX: Z12.31 Encounter for screening mammogram for malignant neoplasm of breast (principal)
CPT/HCPCS: 77063; 77067

== ENCOUNTER 2023-02-20 10:57 | Emergency (ER) | payer MEDICARE, MEDICAID, SELFPAY ==
--- NOTE | ~2023-02-20 | XR_ITS ---
XR hand RT min 3V 02/20/2023 11:31 Indication: Right hand pain Procedure: 3 views right hand Comparison: No prior studies for comparison. Findings: Comminuted mildly displaced extra-articular fracture involving the distal aspect of the fif th metacarpal. There is a nondisplaced extra-articular fracture proximal aspect of the fifth proximal phalanx. There is lucency involving the distal radius, likely related to remote trauma or degenerati ve change. Impression: 1: Acute fractures of the distal aspect of the right fifth metacarpal and proximal aspect of the fift h proximal phalanx. Reviewed, dictated and finalized at location A. Impression: 1: Acute fractures of the distal aspect of the right fifth metacarpal and proxi mal aspect of the fifth proximal phalanx.
[2023-02-20 10:57] VITALS: BP 121/92; PULSE 78; RESP 12; TEMP 36.8; O2SAT 98
--- NOTE | 2023-02-20 11:05 | ED.FALL ---
HPI - Fall General Chief Complaint: Fall Stated Complaint: fall injury; right hand pain Time Seen by Provider: 02/20/23 11:05 Source: patient Mode of arrival: ambulatory Limitations: no limitations History of Present Illness HPI Narrative: 52-year-old female, smoker with a history of chronic pain arthritis, sciatica anxiety and hypothyroidism had a fall last night when she tripped on the sidewalk. No loss of consciousness. She presents to the ER with -- lower lip laceration which is superficial -- right hand pain on the ulnar aspect -- left knee abrasion. able to bear weight. MD complaint: fall Onset (ago): day(s) ( Fell last night) Fall from: standing Fall witnessed: no Place fall occurred: street Loss of consciousness: none Prolonged down time: no Symptoms prior to fall: none Context: tripped/slipped Location of injury: face Location of injury - extremities: Left: knee and Right: hand Severity: moderate Quality: aching Related Data Home Medications Medication Instructions Recorded Confirmed gabapentin 300 mg capsule 300 mg PO QAM 11/10/22 02/20/23 Allergies Allergy/AdvReac Type Severity Reaction Status Date / Time alendronate sodium Allergy Unknown Unknown Verified 02/20/23 11:06 kiwi Allergy Unknown Unknown Verified 02/20/23 11:06 tramadol Allergy Unknown Unknown Verified 02/20/23 11:06 trazodone Allergy Unknown Unknown Verified 02/20/23 11:06 bee venom protein (honey bee) Allergy Unknown Verified 02/20/23 11:06 [bees] diclofenac AdvReac Unknown Verified 02/20/23 11:06 Review of Systems Review of Systems: All systems reviewed & are unremarkable except as noted in HPI and below Constitutional: Constitutional: Reports as per HPI and Reports no additional constitutional complaints Eyes: Eyes: Reports as per HPI and Reports no additional eye complaints ENT: Reports system reviewed and no additional complaints, except as documented and Reports as per HPI Comments: lower lip laceration Cardiovascular: Cardiovascular: Reports as per HPI and Reports no additional cardiovascular complaints Respiratory: Respiratory: Reports as per HPI and Reports no additional respiratory complaints Gastrointestinal: Gastrointestinal: Reports as per HPI and Reports no additional gastrointestinal complaints Musculoskeletal: Musculoskeletal: Reports no additional musculoskeletal complaints Comments: right hand and left knee pain abrasion of the left knee Integumentary/Breasts: Comments: superficial laceration of the lower lip left knee abrasion Neurologic: Reports system reviewed and no additional complaints, except as documented and Reports as per HPI Psychiatric: Psychiatric: Reports no additional psychiatric complaints and Reports as per HPI Endocrine: Endocrine: Reports no additional endocrine complaints and Reports as per HPI Hematologic/Lymphatic: Hematologic/Lymphatic: Reports no additional hematologic/lymphatic complaints and Reports as per HPI Allergic/Immunologic: Allergic/Immunologic: Reports no additional allergic/immunologic complaints and Reports as per HPI PMFSH Past Medical History Medical History Abdominal pain Adult BMI 26.0-26.9 kg/sq m Anemia Anxiety Arthritis Back pain Hypothyroidism Lumbar spondylosis Sciatica Surgical History Surgical History History of abdominoplasty Family History Family History Mother Family history of diabetes mellitus in first degree relative, Onset Age: 60 Patient's mother is Social History Social History Smoking status: Heavy tobacco smoker Second hand tobacco smoke exposure: No Alcohol intake: never Lack of Transportation: No Lack of Food: Sometimes True Current Housing: I Have
[2023-02-20 11:07] VITALS: BP 121/92; PULSE 78; RESP 12; TEMP 36.8; O2SAT 98
[2023-02-20] MEDS: ONDANSETRON HCL ODT 4 MG TABLET PO (11:57)
[2023-02-20] MEDS: HYDROmorphone HCL INJ (*CRX) 2 MG/ML VIAL 0.5 MG IM (11:58)
[2023-02-20 12:00] VITALS: BP 132/75; PULSE 85; RESP 16; TEMP 36.7; O2SAT 99
== END 2023-02-20 12:05 | disposition home or self-care (01) ==
PROVIDERS: Emergency Provider Internal Medicine Critical Care Medicine; PCP Family Medicine
DX: S62.91XA Unspecified fracture of right hand, initial encounter for closed fracture (principal); S01.511A Laceration without foreign body of lip, initial encounter; M25.562 Pain in left knee; E03.9 Hypothyroidism, unspecified; F17.200 Nicotine dependence, unspecified, uncomplicated; Z79.899 Other long term (current) drug therapy; W01.0XXA Fall on same level from slipping, tripping and stumbling without subsequent striking against object, initial encounter; Y92.410 Unspecified street and highway as the place of occurrence of the external cause
CPT/HCPCS: 29125; 73130; 96372; 99284; A4565; A9270; J1170

== ENCOUNTER 2023-04-13 13:45 | Outpatient (CLI) | payer MEDICARE, MEDICAID, SELFPAY ==
--- NOTE | ~2023-04-13 | MR_ITS ---
MRI of the lumbar spine Clinical History: Spondylosis Technique: Axial T2-weighted images, and sagittal T1-weighted, T2-weighted, and and T2 fat-sat images were acquired. COMPARISON: 06/22/2018 Findings: There is no fracture of the lumbar spine. There is minimal grade 1 anterolisthesis of L4 ov er L5. No suspicious bone marrow signal abnormality seen. There is reactive marrow edema about the L4 -L5 disc space due to underlying degenerative disc disease. At L1-L2 and L2-L3, there is no significant disc bulge or herniation. There are mild facet joint dege nerative changes. No spinal canal stenosis or neural foraminal narrowing at these levels. At L3-L4, there is mild diffuse disc bulge with mild facet arthropathy. No central canal stenosis. Th ere is mild bilateral neural foraminal narrowing. At L4-L5, there is severe degenerative disc change. Disc bulge and facet arthropathy are present, wit hout abby central canal stenosis. There is moderate to advanced right neural foraminal narrowing, an d moderate left neural foraminal narrowing. At L5-S1, there is minimal disc bulge and moderate facet arthropathy. No central canal stenosis or ne ural foraminal narrowing. Paravertebral soft tissues are unremarkable. Impression: Moderate to advanced degenerative spondylosis at L4-L5, as detailed above. Minimal grade 1 anterolisthesis of L4 over L5. Reviewed, dictated and finalized at [facility]. OBSERVER Impression: Moderate to advanced degenerative spondylosis at L4-L5, as detailed above. Minimal grade 1 anterolisthesis of L4 over L5.
--- NOTE | ~2023-04-13 | XR_ITS ---
Cervical Spine: AP, lateral, oblique, open-mouth views Clinical History: Pain, postprocedural state Findings: There is straightening of the normal cervical lordosis. There is fusion across the C5-C6 an d C6-C7 disc spaces. Remaining disc spaces demonstrate minimal degenerative change. There is probable left neural foraminal narrowing at C5-C6. Pre-vertebral soft tissues are unremarkable. Impression: Fusion from C5 to C7. Mild degenerative change, as above. Reviewed, dictated and finalized at location M. R TRANSPORT INSPECTOR Impression: Fusion from C5 to C7. Mild degenerative change, as above.
--- NOTE | ~2023-04-13 | MR_ITS ---
EXAMINATION: MR brain/brain stem wo con DATE: 04/13/2023 14:39 INDICATION: Memory loss. TECHNIQUE: Magnetic resonance imaging (MRI) of the brain and brainstem was performed without intraven ous contrast. COMPARISON: None. FINDINGS: There are scattered areas of nonspecific increased T2-weighted signal intensity in the cere bral white matter, which is within normal limits for the patient's age. There is no intracranial hemo rrhage, acute infarction, or abnormal intracranial mass lesion. The ventricles are normal in size. Th e paranasal sinuses are clear. The mastoid air cells are normal. The orbits are normal. IMPRESSION: 1. Normal aging brain. Reviewed, dictated and finalized at location A. UM ATTENDANT IMPRESSION: 1. Normal aging brain.
== END 2023-04-13 13:46 | disposition home or self-care (01) ==
PROVIDERS: PCP Family Medicine; Visit Provider Nurse Practitioner Family
DX: R68.89 Other general symptoms and signs (principal); Z98.890 Other specified postprocedural states; M47.816 Spondylosis without myelopathy or radiculopathy, lumbar region; R41.89 Other symptoms and signs involving cognitive functions and awareness; Z82.0 Family history of epilepsy and other diseases of the nervous system; Z98.1 Arthrodesis status; M43.06 Spondylolysis, lumbar region
CPT/HCPCS: 70551; 72052; 72148

== ENCOUNTER 2023-05-12 11:49 | Outpatient (CLI) | payer MEDICARE, MEDICAID, SELFPAY ==
--- NOTE | ~2023-05-12 | DEXA_ITS ---
Bone Density Report Name: ZAIDA HANKS Age: 52 Sex: Female Ethnicity: White Date of : 1970 Indication: postmenopausal; screening for osteoporosis; height loss; prior fracture; seizure disorder; Referring Provider: PRAMOD TORRES Study: Bone densitometry was performed. Exam Date: May 12, 2023 Accession number: [id number] Bone Density: Region BMD T-score Z-score Classification AP Spine(L1-L4) 0.856 -1.7 -0.7 Osteopenia Femoral Neck (Left) 0.735 -1.0 0.0 Normal Total Hip (Left) 0.853 -0.7 -0.1 Normal Femoral Neck (Right) 0.713 -1.2 -0.2 Osteopenia Total Hip (Right) 0.840 -0.8 -0.2 Normal Femoral Neck Mean 0.724 -1.1 -0.1 Osteopenia Total Hip Mean 0.846 -0.8 -0.1 Normal World Health Organization criteria for BMD impression classify patients as: Normal (T-score at or above -1.0), Osteopenia (T-score between -1.0 and -2.5), or Osteoporosis (T-score at or below -2.5). 10-year Fracture Risk(1): Major Osteoporotic Fracture 11% Hip Fracture 1.2% Reported Risk Factors: [place] (), Neck BMD=0.713, BMI=26.2, previous fracture, smoking (1) FRAX(R) Version 3.08. Fracture probability calculated for an untreated patient. Fracture probability may be lower if the patient has received treatment. Clinical Information Provided by Patient: Has had a low trauma fracture Smokes Has used the following medications: Fosamax (i.e. alendronate) Has the following medical conditions: Any Seizure Disorders Patient maximum height was 67 Menopause Age: 46 No regular weight bearing exercise Onset of menses at age 11 Number of children 2 Impression: The patient has low bone mass, based on the Total Spine T-score. The patient has risk factors, including: smoking, previous fracture. Discussion: BONE DENSITY IS LOW AT ONE OR MORE SKELETAL SITES. This patient's lowest T-score is low at one or more skeletal sites. It meets the World Health Organization's (WHO) criteria for ?low bone mass? (T-score between -1.0 and -2.5). The patient's 10-year risk of fracture as calculated by FRAX is less than the threshold where pharmacological therapy is recommended by the National Osteoporosis Foundation (NOF). However, all treatment decisions require clinical judgment and consideration of individual patient factors, including patient preferences, comorbidities, previous drug use, risk factors not captured in the FRAX model (e.g., frailty, falls, vitamin D deficiency, increased bone turnover, interval significant decline in bone density) and possible under or overestimation of fracture risk by FRAX. The patient should follow a healthful lifestyle (good nutrition with adequate calcium and vitamin D, and appropriate weight-bearing exercise). Follow-Up: Consider repeating this study in 2 to 3
== END 2023-05-12 11:50 | disposition home or self-care (01) ==
LOC: CHSIMG 11:51
PROVIDERS: PCP Family Medicine; Visit Provider Family Medicine
DX: S62.91XA Unspecified fracture of right hand, initial encounter for closed fracture (principal); Z78.0 Asymptomatic menopausal state; M85.89 Other specified disorders of bone density and structure, multiple sites
CPT/HCPCS: 77080

== ENCOUNTER 2023-08-12 12:01 | Outpatient (CLI) | payer MEDICARE, MEDICAID, SELFPAY ==
--- NOTE | ~2023-08-12 | MM_ITS ---
EXAMINATION: MM screening raymundo BI w cesar HISTORY: Screening mammogram TECHNIQUE: Craniocaudal and mediolateral oblique 3-D tomosynthesis images were obtained and synthetic 2-D images were generated. CAD analysis was submitted and interpreted. COMPARISON: August 10, 2022, December 12, 2018 bilateral screening mammogram examinations BREAST PARENCHYMAL COMPOSITION: There are scattered areas of fibroglandular density. FINDINGS: There is no evidence of suspicious mass, calcification, or architectural distortion to sugg est malignancy in either breast. There has been no suspicious interval change. IMPRESSION: 1. No mammographic evidence of malignancy. 2. Recommend routine screening mammography in one year. BI-RADS Category 1: Negative Reviewed, dictated and finalized at location A.
--- NOTE | ~2023-08-12 | XR_ITS ---
AP view of the pelvis and AP and lateral views of the bilateral hips Clinical history: Pain Findings: No acute fracture or dislocation is seen. Osseous alignment is anatomic. Bilateral hip and SI joint spaces are preserved. Calcified uterine fibroid present. Impression: No significant abnormality of the hips is seen. Calcified uterine fibroid. Reviewed, dictated and finalized at [facility]. Impression: No significant abnormality of the hips is seen. Calcified uterine fibroid.
== END 2023-08-12 12:02 | disposition home or self-care (01) ==
PROVIDERS: PCP Family Medicine; Visit Provider Family Medicine
DX: Z12.31 Encounter for screening mammogram for malignant neoplasm of breast (principal); M54.9 Dorsalgia, unspecified; M25.559 Pain in unspecified hip; D25.9 Leiomyoma of uterus, unspecified
CPT/HCPCS: 73521; 77063; 77067

== ENCOUNTER 2023-09-08 13:35 | Outpatient (CLI) | payer MEDICARE, MEDICAID, SELFPAY ==
--- NOTE | 2023-09-08 14:00 | NEURO_ITS ---
Impression: # Complains of numbness of feet. Not diabetic. # Bilateral pitting edema up to the knees.. # Axonal motor/sensory neuropathy. # Needle/EMG exam mildly abnormal with decreased motor unit potentials. # Clinical correlation recommended,because of the significant edema.. Nerve Conduction Studies Anti Sensory Summary Table Stim Site NR Peak (ms) P-T Amp (?V) Site1 Site2 Delta-P (ms) Dist (cm) Ritesh (m/s) Left Sup Fibular Anti Sensory (Ant Lat Mall) NO RESPONSE 14 cm NR 14 cm Ant Lat Mall 16.0 Right Sup Fibular Anti Sensory (Ant Lat Mall) NO RESPONSE 14 cm NR 14 cm Ant Lat Mall 16.0 Left Sural Anti Sensory (Lat Mall) NO RESPONSE Calf NR Calf Lat Mall 16.0 Right Sural Anti Sensory (Lat Mall) NO RESPONSE Calf NR Calf Lat Mall 16.0 Motor Summary Table Stim Site NR Onset (ms) O-P Amp (mV) Site1 Site2 Delta-0 (ms) Dist (cm) Ritesh (m/s) Left Peroneal Motor (Vastus Med) Ankle 4.1 0.5 Popit Ankle 9.7 41.0 42 Popit 13.8 0.2 Right Peroneal Motor (Vastus Med) Ankle 4.1 0.5 Popit Ankle 9.2 40.0 43 Popit 13.3 0.1 Left Tibial Motor (Abd Haile Brev) Ankle 4.2 4.4 Knee Ankle 9.5 44.0 46 Knee 13.7 2.2 Right Tibial Motor (Abd Haile Brev) Ankle 4.0 2.9 Knee Ankle 9.3 44.0 47 Knee 13.3 1.2 F Wave Studies NR F-Lat (ms) L-R F-Lat (ms) Left Peroneal (Mrkrs) (EDB) 56.49 0.94 Right Peroneal (Mrkrs) (EDB) 55.56 0.94 Left Tibial (Mrkrs) (Abd Hallucis) 56.41 1.09 Right Tibial (Mrkrs) (Abd Hallucis) 55.32 1.09 EMG Side Muscle Nerve Root Ins Act Fibs Amp Dur Recrt Comment Right AntTibialis Dp Br Fibular L4-5 Nml Nml Nml Nml +1 Right Gastroc Tibial S1-2 Nml Nml Nml Nml Nml Right Fibularis Long Sup Br Fibular L5-S1 Nml Nml Nml Nml Nml Right Flex Dig Long Tibial L5-S2 Nml Nml Nml Nml Nml Right Ext Dig Brev Dp Br Fibular L5, S1 Nml Nml Nml Nml Nml Left AntTibialis Dp Br Fibular L4-5 Nml Nml Nml Nml +1 Left Gastroc Tibial S1-2 Nml Nml Nml Nml Nml Left Fibularis Long Sup Br Fibular L5-S1 Nml Nml Nml Nml Nml Left Flex Dig Long Tibial L5-S2 Nml Nml Nml Nml Nml Left Ext Dig Brev Dp Br Fibular L5, S1 Nml Nml Nml Nml Nml MTDD
== END 2023-09-08 13:36 | disposition home or self-care (01) ==
LOC: ANHNEURO 13:38
PROVIDERS: PCP Family Medicine; Visit Provider Anesthesiology Pain Medicine
DX: R22.43 Localized swelling, mass and lump, lower limb, bilateral (principal); M48.062 Spinal stenosis, lumbar region with neurogenic claudication; R94.131 Abnormal electromyogram [EMG]
CPT/HCPCS: 95886; 95910

== ENCOUNTER 2023-11-22 14:05 | Outpatient (CLI) | payer MEDICARE, MEDICAID, SELFPAY ==
--- NOTE | ~2023-11-22 | XR_ITS ---
XR chest 2V 11/22/2023 14:51 Indication: Dyspnea Procedure: 2 view chest Comparison: Comparison to multiple prior studies sequentially, with oldest reviewed study dated 10/2015. Findings: Left basilar airspace disease may represent atelectasis or pneumonia. No pleural effusion. Heart size normal. Right lung clear. No acute osseous abnormality. Impression: 1: Left basilar airspace disease may represent atelectasis or pneumonia. Reviewed, dictated and finalized at location B. Impression: 1: Left basilar airspace disease may represent atelectasis or pneumonia.
--- NOTE | 2023-11-22 14:34 | ECG_ITS ---
Test Date: 2023-11-22 14:39:28 Measurements Intervals [place] Rate: 69 P: 60 CA: 184 QRS: 39 QRSD: 108 T: 79 QT: 403 QTc: 432 Interpretive Statements SINUS RHYTHM LOW QRS VOLTAGE IN PRECORDIAL LEADS NONSPECIFIC ST & T-WAVE ABNORMALITY- DIFFUSE LEADS BASELINE WANDER- I, II, AVR, AVL, AVF BORDERLINE ECG No previous ECG available for comparison Electronically Signed On 11-22-2023 14:41:03 CDT by Matt Mesa D.O.
[2023-11-22 14:51] LABS: Hematocrit 47.3 % (37.0-47.0); Hemoglobin 15.5 g/dL (12.0-15.0); Mean Corpuscular HGB Conc 32.8 g/dl (32-36); Mean Corpuscular Hemoglobin 29.8 pg (26-34); Mean Platelet Volume 10.1 fl (7.4-10.4); Platelet Count Result 252 k/mm3 (150-375); Red Cell Distribution Width 12.6 % (11.5-14.5)
[2023-11-22 14:55] LABS: Partial Thromboplastin Time 26.4 Seconds (22.3-36.8)
[2023-11-22 15:01] LABS: Anion Gap 10 mmol/L (4-12); Blood Urea Nitrogen 16 mg/dL (7-17); Calcium 9.2 mg/dL (8.4-10.2); Carbon Dioxide 21 mmol/L (22-30); Chloride 107 mmol/L (98-107); Estimated Glomerular Filt Rate > 60; Glucose 148 mg/dL (65-110); Potassium 3.9 mmol/L (3.4-5.0); Sodium 138 mmol/L (137-145)
== END 2023-11-22 14:06 | disposition home or self-care (01) ==
LOC: ANHLAB 14:13
PROVIDERS: PCP Family Medicine; Visit Provider Anesthesiology Pain Medicine
DX: Z01.818 Encounter for other preprocedural examination (principal); D68.9 Coagulation defect, unspecified; R91.8 Other nonspecific abnormal finding of lung field; R94.31 Abnormal electrocardiogram [ECG] [EKG]
CPT/HCPCS: 36415; 71046; 80048; 85027; 85610; 85730; 93005

== ENCOUNTER 2023-11-23 05:52 | Day surgery (SDC) | payer MEDICARE, MEDICAID, SELFPAY ==
[2023-11-15 12:09] VITALS: BMI 24.5
[2023-11-23] VITALS (8 sets, daily range): BP systolic 118–153; BP diastolic 84–96; PULSE 68–89; RESP 14–20; TEMP 36.2–36.6; O2SAT 95–100
--- NOTE | ~2023-11-23 | XR_ITS ---
XR fluoroscopy no charge Indication: Percutaneous transpedicular intraosseous basivertebral nerve ablation TECHNIQUE: Fluoroscopy used during Percutaneous transpedicular intraosseous basivertebral nerve abla tion performed by [Darrius Frost MD] on 11/23/2023. 312 seconds of fluoroscopy with 47 fluorosc opic images captured. FINDINGS: Correlate with procedure note. IMPRESSION: Fluoroscopy used during Percutaneous transpedicular intraosseous basivertebral nerve abla tion. Reviewed, dictated and finalized at location B. IMPRESSION: Fluoroscopy used during Percutaneous transpedicular intraosseous ba sivertebral nerve ablation.
--- NOTE | 2023-11-23 05:27 | PM.HPGS ---
History of Present Illness History of Present Illness Consent: Risks, benefits, and alternatives have been discussed and questions answered. Patient agrees to proceed with procedure. 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 Review of Systems Review of Systems: Patient denies any new infectious, allergic, cardiopulmonary, neurologic or constitutional symptoms or changes in activity tolerance or exercise capacity including new or progressive SOB/TORRES, peripheral edema, productive cough, dysuria, nausea/vomiting, diarrhea, weight change, fevers/chills/night sweats, new or progressive neurologic deficit, cognitive or mood changes since last seen, except as documented in the HPI. All systems reviewed & are unremarkable except as noted in HPI and below PMFSH Past Medical History Medical History Abdominal pain Adult BMI 26.0-26.9 kg/sq m Anemia Anxiety Arthritis Back pain BMI 24.0-24.9, adult Hypothyroidism Lumbar spondylosis Sciatica Surgical History Surgical History History of abdominoplasty Family History Family History Mother Family history of diabetes mellitus in first degree relative, Onset Age: 60 Patient's mother is Social History Social History (Updated 09/20/23 @ 15:31 by Thao Stewart CMA) Smoking packs per day: 1 Smoking cigarettes per day: 20.0 Years smoked: 30 Smoking pack-years: 30.00 Smoking status: Current every day smoker Tobacco type: cigarettes Second hand tobacco smoke exposure: No Alcohol intake: current Alcohol use details: occasionally Substance use: never Substance use type: does not use Do You Feel Safe in your Home?: Yes Lack of Transportation: No Lack of Food: Sometimes True Current Housing: I Have Housing Concerned About Future Housing: No Difficulty Paying Gas/Electric Bills: No Difficulty Paying for Meds: No Currently Unemployed: No Education: High School Diploma/GED Difficulty w/ Childcare or Family Care: No Living arrangements: with family Spiritual care concerns: No Meds Home Medications and Allergies Home Medications Medication Instructions Recorded Confirmed Type acetaminophen 300 mg-codeine 30 mg 1 tablet PO Q6H PRN pain #120 tabs 07/29/23 11/15/23 Rx tablet levothyroxine 75 mcg tablet 75 mcg PO DAILY #90 tabs 11/03/23 11/15/23 Rx cyclobenzaprine 10 mg tablet 10 mg PO TID 11/15/23 11/15/23 History gabapentin 300 mg capsule 300 mg PO TID 11/15/23 11/15/23 History Allergies Allergy/AdvReac Type Severity Reaction Status Date / Time alendronate sodium Allergy Unknown Unknown Verified 11/15/23 12:05 kiwi Allergy Unknown Unknown Verified 11/15/23 12:05 tramadol Allergy Unknown Unknown Verified 11/15/23 12:05 trazodone Allergy Unknown Unknown Verified 11/15/23 12:05 bee venom protein (honey bee) Allergy Unknown Verified 11/15/23 12:05 [bees] diclofenac AdvReac Unknown Verified 11/15/23 12:05 Exam Narrative: The patient's physical exam is essentially unchanged from prior examination on 09/20/2023. Specifically, patient demonstrates normal lung capacity, tidal volume and respiratory rate without wheezes, crackles, rales or rubs. Heart rate and rhythm are regular without murmurs, gallops or rubs. No JVD. Pulses 2+ globally
--- NOTE | 2023-11-23 05:31 | WPDHPUPDATE1 ---
History and Physical Update Update Date/Time: 11/23/23 05:31 History and Physical has been reviewed, including an updated exam of the patient. There are NO changes in the patient's condition. Risks, benefits, and alternatives have been discussed and questions answered. Patient agrees to proceed with procedure.
--- NOTE | 2023-11-23 05:33 | W.PM.PROC2 ---
Procedure Note - Detailed Date of Procedure 11/23/23 Pre-op Diagnosis Vertebrogenic Low Back Pain Post-op Diagnosis Same Procedure Performed Percutaneous transpedicular intraosseous basivertebral nerve thermal radiofrequency ablation (Intracept procedure) at L4, L5, S1 under fluoroscopic guidance. Surgeon Darrius Frost MD Anesthesia General (GETA] in the [prone] position with infiltration of local anesthetic. ) Description of Procedure INDICATION FOR PROCEDURE: Patient has Modic-type I/II inflammatory degenerative changes of the endplates supplied by the basivertebral nerve at each level listed (as documented on recent MRI) resulting in [id number] chronic axial low back pain that is aggravated by activity. They are significantly limited in their daily and/or work-related activities as a result, including sitting, standing, lifting/carrying and sleeping, with failure to respond to and/or tolerate extensive efforts at more conservative management (i.e. oral and topical analgesics including NSAIDs, acetaminophen and opioids, Physical Therapy and modalities, time/rest, interventional procedures/corticosteroid injections) for greater than 6 months prior to today's procedure establishing medical necessity for this well-studied and FDA-approved pain-relieving procedure. INFORMED CONSENT: Procedure was discussed in detail with the patient at a previous visit and at the time of surgery. During this discussion, the risks, benefits, and alternatives to the procedure, including doing nothing, were thoroughly described to the patient, who expressed explicit understanding and consent to proceed. Specific risks discussed with the patient included, but were not limited to the risk of serious local or systemic infection, skin burn/scarring, major or minor bleeding/bruising, allergic reaction to medications or materials, inadvertent lung or other organ injury, new or worsening spinal fracture, inadvertent thermal or mechanical nerve or spinal cord injury resulting in increased pain, weakness, numbness or loss of bowel or bladder control, the need for repeat or additional surgery, inadvertent dural puncture resulting in acute or chronic CSF leak and post-dural puncture headache, failure to treat pain, and risks associated with general anesthesia in the prone position including eye, dental, joint, nerve, spine or soft tissue injury/pain related to positioning, heart attack, respiratory failure, aspiration, pneumonia, DVT/PE or thrombosis, hemorrhagic or ischemic stroke, hypoxia, hypo- or hypertension, seizure, coma and . Patient understands these risks and agrees that the opportunity for benefit outweighs the potential risk of harm. Procedure specific informed consent form was read, reviewed, signed by the patient and surgeon and witnessed in the pre-operative area. All pertinent questions were asked and answered to the patient's satisfaction. Surgical site was pre-treated with chlorhexidine wipes. All materials required for the procedure were available and site and side of procedure was marked prior to procedure start. Appropriate timeout was conducted by all participants in the OR (patient's ID, procedure to be performed, procedure site and side, allergies and appropriate medications including pre-operative antibiotics were verified) prior to incision. PROCEDURE IN DETAIL: After full informed consent and adequate IV access was obtained without difficulty; the patient was escorted to the procedural suite. ASA standard monitors were applied and utilized throughout the case. Prophylactic antibiotics were administered prior to procedure start. GETA was initiated without difficulty or event. Eyes were protected. Patient was converted to the prone position in optimal flexion using pillows under the abdomen, hips and ankles. Pressure points were padded, cervical spine and joints were placed in neutral position. Eyes, breasts and genitals were evaluated and protected as
--- NOTE | 2023-11-23 07:28 | WPDANESEPPF ---
Anes - Initial Pre Proc Eval Procedure: Operation Date: 11/23/23 07:30 Proposed Procedures p Percutaneous Transpedicular Intraosseous Basivertebral Nerve Ablation L4, L5, S1 Under Fluoroscopic Guidance - Darrius Frost MD Date/Time: 11/23/23 07:28 Surgeon: Darrius Frost MD Pre Op Diagnosis: Vertebrogenic Low Back Pain Patient Data Age: 53 Gender: F Height: 1.73 m Weight: 81.3 kg Last Vital Signs Temp 36.6 C 11/23/23 06:18 Pulse 68 11/23/23 06:18 Resp 15 11/23/23 06:18 BP 131/86 11/23/23 06:18 Pulse Ox 100 11/23/23 06:18 O2 Del Method Room Air 11/23/23 06:18 Allergies Allergy/AdvReac Type Severity Reaction Status Date / Time alendronate sodium Allergy Unknown Unknown Verified 11/23/23 06:16 kiwi Allergy Unknown Unknown Verified 11/23/23 06:16 tramadol Allergy Unknown Unknown Verified 11/23/23 06:16 trazodone Allergy Unknown Unknown Verified 11/23/23 06:16 bee venom protein (honey bee) Allergy Unknown Verified 11/23/23 06:16 [bees] diclofenac AdvReac Unknown Verified 11/23/23 06:16 Home Medications Medication Instructions Recorded Confirmed Type acetaminophen 300 mg-codeine 30 mg 1 tablet PO Q6H PRN pain #120 tabs 07/29/23 11/23/23 Rx tablet levothyroxine 75 mcg tablet 75 mcg PO DAILY #90 tabs 11/03/23 11/23/23 Rx cyclobenzaprine 10 mg tablet 10 mg PO TID 11/15/23 11/23/23 History gabapentin 300 mg capsule 300 mg PO TID 11/15/23 11/23/23 History Patient hx anesthesia problems: none Family hx anesthesia problems: none Results Review: All pre-operative results and documents have been reviewed as part of the pre-operative evaluation. [facility] Past Medical History Medical History Abdominal pain Adult BMI 26.0-26.9 kg/sq m Anemia Anxiety Arthritis Back pain BMI 24.0-24.9, adult Hypothyroidism Lumbar spondylosis Sciatica Surgical History Surgical History History of abdominoplasty Family History Family History Mother Family history of diabetes mellitus in first degree relative, Onset Age: 60 Patient's mother is Social History Social History Smoking packs per day: 1 Smoking cigarettes per day: 20.0 Years smoked: 30 Smoking pack-years: 30.00 Smoking status: Current every day smoker Tobacco type: cigarettes Second hand tobacco smoke exposure: No Alcohol intake: current Alcohol use details: occasionally Substance use: never Substance use type: does not use Do You Feel Safe in your Home?: Yes Lack of Transportation: No Lack of Food: Sometimes True Current Housing: I Have Housing Concerned About Future Housing: No Difficulty Paying Gas/Electric Bills: No Difficulty Paying for Meds: No Currently Unemployed: No Education: High School Diploma/GED Difficulty w/ Childcare or Family Care: No Living arrangements: with family Spiritual care concerns: No Anes - Eval Final PreProcedure Day of Procedure 11/23/23 07:28 Patient weight: overweight Heart: regular rate and rhythm Lungs: decreased breath sounds Airway: Mallampati scale Neurological: alert and oriented Last oral intake: >/= 8 hours ASA classification: III Emergent: no Anesthetic plan: proceed Anesthesia type and monitoring: general ETT and standard monitoring Results Review: All pre-operative results and documents have been reviewed as part of the pre-operative evaluation. Informed Consent: The patient's anesthetic plan and its attendant risks and benefits were discussed with the patient/family/POA. Questions were solicited and answers provided to the satisfaction of the patient/family/POA.
[2023-11-23] MEDS: LACTATED RINGERS 1,000 ML 30 ML IV CONT (07:30)
[2023-11-23] MEDS: SCOPOLAMINE 1 MG PATCH 1 PATCH TRANSDERM (07:31)
[2023-11-23] MEDS: ceFAZolin SODIUM 2 GM/20 ML SW SYRINGE IV PUSH (07:36)
[2023-11-23] MEDS: BUPIVACAINE/EPINEPHRINE 0.5% 10 ML VIAL INFILTRATE (07:59)
[2023-11-23] MEDS: LIDOCAINE HCL 2% PF INJ 5 ML VIAL INFILTRATE (07:59)
--- NOTE | 2023-11-23 08:21 | SUR.OPER ---
Relieveant Ablation machine SN- [id number] S1-15min L4-7min L5-7min
--- NOTE | 2023-11-23 09:41 | SUR.PHASEI ---
PT AWAKE AND ALERT. SITTING UP AND EATING ICE CHIPS. DENIES PAIN. TALKATIVE.
--- NOTE | 2023-11-23 10:17 | WPDANESPN ---
Anes - Prog Note Post-Op Date/Time: 11/23/23 10:17 Cardiovascular status: normal Respiratory status: normal Airway patency: baseline Mental status: baseline Post-Op hydration status: normal Vital Signs: Last Vital Signs Temp 36.2 C L 11/23/23 09:00 Pulse 73 11/23/23 10:09 Resp 16 11/23/23 10:09 BP 118/84 11/23/23 10:09 Pulse Ox 98 11/23/23 10:09 O2 Del Method Room Air 11/23/23 10:09 O2 Flow Rate 6 11/23/23 09:15 Pain Score (VAS): 2 I/O: Intake & Output 11/22/23 11/23/23 11/23/23 23:59 07:59 15:59 Intake Total 175 Balance 175 Patient Feedback: Patient satisfied with anesthetic care.
== END 2023-11-23 10:26 | disposition home or self-care (01) ==
PROVIDERS: PCP Family Medicine; Visit Provider Anesthesiology Pain Medicine
PROC: (CPT 64628; principal; 2023-11-23 07:30)
DX: M54.51 Vertebrogenic low back pain (principal)
CPT/HCPCS: 64628; 64629; 99199

== ENCOUNTER 2024-03-29 07:54 | Outpatient (CLI) | payer MEDICARE, MEDICAID, SELFPAY ==
--- NOTE | ~2024-03-29 | CT_ITS ---
EXAMINATION:CT chest high resolution wo co DATE: 03/29/2024 08:09 INDICATION: Cough. Chronic obstructive pulmonary disease. TECHNIQUE: Computed tomography (CT) of the chest was performed without intravenous contrast. Automate d exposure control and iterative reconstruction technique were employed. The dose-length product (DLP ) was 197.72 mGy-cm. COMPARISON: CT abdomen and pelvis 07/11/2022, neck CT 11/16/2013 FINDINGS: There is mild scarring at the lung apices. There are chronic nodules at the lung apices sandeep suring up to 5 mm, likely benign. There is mild atelectasis bilaterally. No pleural effusion. The hea rt size is normal. No pericardial effusion. Calcifications in the spleen are consistent with old gran ulomatous disease. There are changes of anterior fusion procedures in cervical spine. There is severe mid thoracic spondylosis. IMPRESSION: 1. Stable mild scarring at the lung apices. Reviewed, dictated and finalized at location A. RVISOR TOWER
== END 2024-03-29 07:55 | disposition home or self-care (01) ==
LOC: CHSIMG 07:56
PROVIDERS: PCP Family Medicine; Visit Provider Nurse Practitioner Adult Health
DX: F17.210 Nicotine dependence, cigarettes, uncomplicated (principal); R05.8 Other specified cough; J44.9 Chronic obstructive pulmonary disease, unspecified; R91.8 Other nonspecific abnormal finding of lung field
CPT/HCPCS: 71250

== ENCOUNTER 2024-04-11 08:14 | Day surgery (SDC) | payer MEDICARE, MEDICAID, SELFPAY ==
[2024-04-06 09:10] VITALS: BMI 23.4
--- NOTE | ~2024-04-11 | XR_ITS ---
EXAMINATION: XR fluoroscopy no charge DATE: 04/11/2024 9:55 PIN MACHINE TENDER INDICATION: RIGHT INTRA-ARTICULAR SI JT STEROID INJ . TECHNIQUE: 5 fluoroscopic images and 3 cine clips of the right SI joint were obtained during right SI joint intra-articular steroid injection, performed by Darrius Frost MD. I was not present during the procedure. Fluoroscopy exposure time was 7.8 seconds. Air Kerma 2.06 mGy. COMPARISON: None FINDINGS/IMPRESSION: Fluoroscopic documentation of right SI joint intra-articular steroid injection. Please refer to the o perative note for complete procedural details . Reviewed, dictated and finalized at location K. MACHINE TENDER
[2024-04-11 08:45] VITALS: BP 135/88; PULSE 70; RESP 16; TEMP 36.5; O2SAT 98
--- NOTE | 2024-04-11 08:56 | WPDHPUPDATE1 ---
History and Physical Update Update Date/Time: 04/11/24 08:57 History and Physical has been reviewed, including an updated exam of the patient. There are NO changes in the patient's condition. Risks, benefits, and alternatives have been discussed and questions answered. Patient agrees to proceed with procedure.
--- NOTE | 2024-04-11 08:57 | W.PM.PROC2 ---
Procedure Note - Detailed Date of Procedure 04/11/24 Pre-op Diagnosis Sacroiliitis, chronic low back pain Post-op Diagnosis Same Procedure Performed Right Sacroiliac Joint Steroid Injection under Fluoroscopic Guidance and with Contrast Control. Surgeon Darrius Frost MD Circular Knife Machine Cutter None Anesthesia Local Description of Procedure INFORMED CONSENT: Risks, benefits and alternatives to the procedure were discussed in detail with the patient who expressed explicit understanding and consent to proceed. Patient was informed verbally and in written form regarding the risks associated with the procedure including the low risk of serious infection, bleeding/bruising, allergic reaction, nerve or organ injury, paralysis, procedural site pain or discomfort, worsening pain and/or mobility, failure to treat and/or disfigurement. The patient expressed explicit understanding and consent to proceed. All materials required for the procedure were available prior to procedure start. Site and side were marked prior to procedure and confirmed in the presence of the patient. PROCEDURE IN DETAIL: The patient was brought to the procedural suite and placed in the prone position. Patient was made comfortable with use of pillows under the head/chest, hips and ankles. Skin overlying the injection site on the affected side(s) was prepared broadly with ChloraPrep applicator and draped in a sterile manner. Aseptic technique was used throughout. The right SI joint was identified in the AP view and contralateral oblique angulation with caudal tilt was utilized to optimize visualization of the inferior and medial joint line representing the posterior portion of the joint. Local anesthesia was established by infiltration with approximately 5 mL of 2% lidocaine via a 1-1/2 inch 27-gauge needle. A 22-gauge 3.5 inch Quincke spinal needle was advanced until the needle entered the inferior third of the joint space approximately 1cm cephalad from its most inferior point. In the AP view, 0.5 mL of Omnipaque 300 contrast medium was injected after negative aspiration for CSF, blood or other bodily fluid, showing appropriate intra-articular spread of contrast without evidence of intravascular, perineural or intrathecal placement. A 1.5 mL solution containing 6 mg of betamethasone in 0.5% PF bupivacaine was injected after repeat negative aspiration. Appropriate spread of the injectate was confirmed with washout of previous injected contrast. No parasthesias were elicited. Needle was removed completely intact without difficulty. Images were saved and documented in the patient chart. Patient's skin was cleansed and sterile bandage applied. The patient tolerated the procedure well. The patient was transported to the recovery area in stable condition where they were observed for an appropriate amount of time prior to discharge, without evidence of complication. The patient was instructed to avoid excessive activity for the next 48 hours, including climbing and frequent use of stairs. Showers only for 48 hours. They were instructed not to drive or operate heavy machinery for 24 hours. They are to monitor for severe headaches, fevers, chills, night sweats, erythema/swelling at the site or any other signs of infection, bleeding/bruising, bowel or bladder changes as well as new pain, weakness or numbness in the upper or lower extremity. Should they notice these changes, they are instructed to call our office immediately or report directly to the nearest Emergency Department if no answer or if after posted office hours. COMPLICATIONS: None COMMENTS: None CONTRAST WASTED: 29.5 mL Omnipaque 300. Complications No immediate complications Condition Stable Disposition Same day [facility] Billing Surgery - Charge Forward: Surgery Billing
[2024-04-11 10:03] VITALS: BP 123/73; PULSE 69; RESP 14; O2SAT 96
[2024-04-11 10:08] VITALS: BP 128/78; PULSE 67; RESP 16; O2SAT 97
[2024-04-11] MEDS: BUPivacaine HCL 0.5% 10 ML AMP 2 ML INFILTRATE (10:10)
[2024-04-11] MEDS: BETAMETHASONE SOD PHOS/ACETATE 30 MG/5 ML VIAL 6 MG I-ARTICULR (10:10)
[2024-04-11] MEDS: LIDOCAINE HCL 1% PF INJ 5 ML VIAL 2 ML INFILTRATE (10:12)
[2024-04-11 10:13] VITALS: BP 116/84; PULSE 65; RESP 16; O2SAT 100
== END 2024-04-11 10:25 | disposition home or self-care (01) ==
PROVIDERS: PCP Family Medicine; Visit Provider Anesthesiology Pain Medicine
PROC: (CPT G0260; principal; 2024-04-11 10:00)
DX: M46.1 Sacroiliitis, not elsewhere classified (principal); M54.59 Other low back pain
CPT/HCPCS: G0260; 27096; 99199

== ENCOUNTER 2024-08-08 12:37 | Outpatient (CLI) | payer MEDICARE, MEDICAID, SELFPAY ==
--- NOTE | 2024-08-08 12:57 | ECG_ITS ---
Test Date: 2024-08-08 13:10:21 Measurements Intervals [place] Rate: 72 P: 69 AK: 188 QRS: 67 QRSD: 113 T: 77 QT: 403 QTc: 442 Interpretive Statements SINUS RHYTHM INTRAVENTRICULAR CONDUCTION DELAY NONSPECIFIC ST & T-WAVE ABNORMALITY- ANTEROLAT/INF LEADS BORDERLINE ECG Compared to ECG 11/22/2023 14:39:28 NO SIGNIFICANT CHANGE Electronically Signed On 08-08-2024 13:15:34 CDT by Matt Mesa D.O.
[2024-08-08 13:01] LABS: Hematocrit 43.3 % (35.0-49.0); Mean Corpuscular HGB Conc 32.3 g/dL (32-36); Mean Corpuscular Volume 89.6 fL (78.0-102.0); Mean Platelet Volume 10.3 fl (9.2-11.8); Platelet Count Result 225 K/mm3 (150-420); Red Blood Count 4.83 M/mm3 (4.20-5.40); Red Cell Distribution Width 13.8 % (11.6-14.4); White Blood Count 5.4 K/mm3 (4.8-10.8)
[2024-08-08 13:27] LABS: Band Neutrophils Percent 4 % (0-6); Basophils Percent Manual 0 % (0-1); Eosinophils Absolute Manual 0.05 K/mm3 (0.02-0.50); Eosinophils Percent Manual 1 % (1-6); Lymphocytes Absolute Manual 3.24 K/mm3 (1.1-4.5); Lymphocytes Percent Manual 60 % (18-44); Monocytes Absolute Manual 0.16 K/mm3 (0.1-0.90); Monocytes Percent Manual 3 % (3-9); Neutrophils Absolute Manual 1.94 K/mm3 (1.7-7.2); Neutrophils Percent Manual 32 % (46-73); Partial Thromboplastin Time 29.9 Sec (23.9-30.70); Platelet Clumps Present; Platelet Estimate Adequate (Adequate); Prothrombin Time 10.8 Seconds (9.50-12.1); Total Cells Counted 100
[2024-08-08 13:28] LABS: Schistocytes None Seen
--- OUTSIDE RECORDS SUMMARY | 2024-08-08 13:44 | XMS_ITS | Data Portability ---
Author Organization [facility] Address [address] [place] [address] Care Team Providers Care Timber Trimmer Name Role Phone LOLA MCKEON Primary Care Provider Assessment No assessment recorded. Plan of Treatment Reminders Order Date Submit Date Provider Last Modified By Organization Details Last Modified Time Details Appointments None recorded. Lab CBC 2021 [facility], [address] [facility], [facility], [place], [address], 06:14:57 CMP, serum or plasma 2021 022 [facility], [address] [facility], [facility], [place], [address], 06:14:56 lipid panel, serum 2021 [facility], [address] [facility], [facility], [place], [address], 06:14:55 CMP, serum or plasma 2021 022 [facility], [address] [facility] [address], [place], [address], 17:09:16 CBC 2021 022 [facility], [address] [facility], [address], [place], [address], 17:09:17 TSH, serum or plasma [id number] [facility], [address] [facility], [address], [place], [address], 17:09:18 lipid panel, serum 2021 [facility], [address] [facility], [address], [place], [address], 17:09:17 drug screen, urine 2020 [facility], [address] [facility], [address], [place], [address], 17:08:46 Referral neurologic al surgeon referral 2021 [email or web address] Not available 13:33:20 Procedures None recorded. Surgeries None recorded. Imaging None recorded. Medication Orders gabapentin 300 mg capsule 2021 [facility], [address], [place], [id number], 15:45:12 ciprofloxa jeff 0.3 %-dexameth asone 0.1 % ear drops,susp ension 2021 [facility], [address] [place], [place], [id number], 15:42:58 cyclobenza dre 10 mg tablet 2021 [facility], [address] [place], [place], [id number], 15:45:08 diclofenac sodium 75 mg tablet,del ayed release 2021 [facility], [address], [place], [id number], 15:45:11 levothyrox ine 75 mcg tablet 2021 022 [facility] [place], [address], [place], [place], [id number], 15:45:08 gabapentin 300 mg capsule 2021 022 [facility] [place], [address], [place], [place], [id number], 14:39:00 diclofenac sodium 75 mg tablet,del ayed release 2021 [facility] [place], [address], [place], [place], [id number], 14:22:39 levothyrox ine 75 mcg tablet 2021 022 [facility] [place], [address], [place], [place], [id number], 14:22:37 Bactrim DS 800 mg-160 mg tablet 2019 020 [email or web address] [place], [address], [place], [place], [id number], 14:02:23 Patient TargetsNo targets recorded. Patient Instructions Encounter Date Encounter Id Patient Instructions Last Modified By Organization Details Last Modified Time 06/25/2021 [id number] hypothyroidism: care instructions chantell Not available 06/25/2021 14:21:52 Reason for Referral Neurological Surgeon Referra l for Cervical syndrome Referring Physician: Lola Mckeon, Family Medicine, Encounter Date: 06/25/2021 Results Created Date Observation Date Name Description Value Unit Range Abnormal Flag Note LastModifiedBy Organization Detail LastModifiedTime 05/31/1906/05/2020 drug scree n, urine summary report (summary) FINAL ===== ===== ===== ===== ===== ===== ===== ===== ===== ===== ===== ===== ===== === TOXAS SURE COMP DRUG HUYEN SIS,U R ===== ===== ===== ===== ===== ===== ===== ===== ===== ===== ===== ===== ===== === Test Resul t Flag Units Drug Prese nt and Decla red for Presc ripti on Verif icati on Gabap entin PRESE NT EXPEC TAURUS Aceta minop hen PRESE NT EXPEC TAURUS Drug Prese nt not Decla red for Presc ripti on Verif icati on Metha mphet amine >3676 UNEXP ECTED ng/mg creat Amphe tamin e 1197 UNEXP ECTED ng/mg creat Sourc es of metha mphet amine inclu de illic it sourc es, as a sched uled presc ripti on medic ation , as a metab olite of some presc ripti on drugs , or use of an l-met hamph etami ne inhal er. Amphe tamin e is an expec taurus metab olite of metha mphet amine . Amphe tamin e is also avail able as a sched ule II presc ripti on drug. Benzo ylecg onine 1492 UNEXP ECTED ng/mg creat Benzo ylecg onine is a metab olite of cocai ne; its prese nce indic ates use of this drug. Sourc e is most commo nly illic it, but cocai ne is prese nt in some topic al anest hetic solut ions. Carbo xy-TH C 44 UNEXP ECTED ng/mg creat Carbo xy-TH C is a metab olite of tetra hydro canna binol (THC) . Sourc e of THC is most commo nly illic it, but THC is also prese nt in a sched uled presc ripti on medic ation . Drug Absen t but Decla red for Presc ripti on Verif icati on Codei ne Not Detec taurus UNEXP ECTED ng/mg creat [place] codon e Not Detec taurus UNEXP ECTED ng/mg creat Prega balin Not Detec taurus UNEXP ECTED Diclo fenac Not Detec taurus UNEXP ECTED Diclo fenac , as indic ated in the decla red medic ation list, is not alway s detec taurus even when used as direc taurus. ===== ===== ===== ===== ===== ===== ===== ===== ===== ===== ===== ===== ===== === Test Resul t Flag Units Ref Range Creat inine 136 mg/dL >=20 ===== ===== ===== ===== ===== ===== ===== ===== ===== ===== ===== ===== ===== === Decla red Medic ation s: The marcello ing and inter preta tion on this repor t are based on the follo wing decla red medic ation s. Unexp ected resul ts may arise from inacc uraci es in the decla red medic ation s. Not e: The testi ng scope of this panel inclu eleuterio these medic ation s: Codei ne (Acet amino phen- Codei ne) Gabap entin [place] codon e (Hydr ocodo ne-Ac etami nophe n) Prega balin Not e: The testi ng scope of this panel does not inclu de small to moder ate amoun ts of these repor taurus medic ation s: Aceta minop hen (Acet amino phen- Codei ne) Aceta minop hen (Hydr ocodo ne-Ac etami nophe n) Diclo fenac Not e: The testi ng scope of this panel does not inclu de follo wing repor taurus medic ation s: Cipro floxa jeff Levot hyrox ine Melox icam Sulfa metho xazol e (Trim ethop rim-S ulfam ethox azole ) Trime thopr im (Trim ethop rim-S ulfam ethox azole ) ===== ===== ===== ===== ===== ===== ===== ===== ===== ===== ===== ===== ===== === For malloryi krysten consu ltati on, pleas e call . ===== ===== ===== ===== ===== ===== ===== ===== ===== ===== ===== ===== ===== === Not Available [facility] [address] [facility] [address], [place], [address], 06/05/2020 17:08:46 05/31/19 21 06/05/2020 drug scree n, urine pdf . Not Available [facility] [address] [facility] [address], [place], [address], 06/05/2020 17:08:46 06/26/19 22 06/27/2021 COMP. METAB OLIC PANEL (14) glucose 113 mg/dL 65-99 above high normal Not Available [facility] ([facility]) [address] [place], [address], 07/01/2021 17:09:16 06/26/19 22 06/27/2021 COMP. METAB OLIC PANEL (14) BUN 28 mg/dL 6-24 above high normal Not Available [facility] ([facility]) [address] [place], [address], 07/01/2021 17:09:16 06/26/19 22 06/27/2021 COMP. METAB OLIC PANEL (14) creatinine 0.75 mg/dL 0.57-1 .00 Eff ectiv e Febru quinn 2021 [facility] will begin repor ting the 2020 CKD-E PI creat inine equat ion that estim ates kidne y funct ion witho ut a race varia ble. Not Available [facility] ([facility]) [address] [facility], [place], [address], 07/01/2021 17:09:16 06/26/19 22 06/27/2021 COMP. METAB OLIC PANEL (14) eGFR if nonafricn AM 92 mL/mi n/1.7 3 >59 Not Available [facility] ([facility]) [address] [facility], [place], [address], 07/01/2021 17:09:16 06/26/19 22 06/27/2021 COMP. METAB OLIC PANEL (14) eGFR if africn AM 106 mL/mi n/1.7 3 >59 In accor dance with recom menda tions from the NKF-A SN Task force , [facility] is in the proce ss of updat ing its eGFR calcu latio n to the 2020 CKD-E PI creat inine equat ion that estim ates kidne y funct ion witho ut a race varia ble. Not Available [facility] ([facility]) [address] [facility], [place], [address], 07/01/2021 17:09:16 06/26/19 22 06/27/2021 COMP. METAB OLIC PANEL (14) BUN/creatini ne ratio 37 9-23 above high normal Not Available [facility] ([facility]) [address] [facility], [place], [address], 07/01/2021 17:09:16 06/26/19 22 06/27/2021 COMP. METAB OLIC PANEL (14) sodium 142 mmol/ L 134-14 4 Not Available [facility] ([facility]) [address] [place], [address], 07/01/2021 17:09:16 06/26/19 22 06/27/2021 COMP. METAB OLIC PANEL (14) potassium 4.8 mmol/ L 3.5-5. 2 Speci men recei ximena hemol yzed. Value may be incre ased by hemol ysis. Clini krysten corre latio n indic ated. Not Available [facility] ([facility]) [address] [place], [address], 07/01/2021 17:09:16 06/26/19 22 06/27/2021 COMP. METAB OLIC PANEL (14) chloride 104 mmol/ L 96-106 Not Available [facility] ([facility]) [address] [place], [address], 07/01/2021 17:09:16 06/26/19 22 06/27/2021 COMP. METAB OLIC PANEL (14) carbon dioxide, total 19 mmol/ L 20-29 below low normal Not Available [facility] ([facility]) [address] [place], [address], 07/01/2021 17:09:16 06/26/19 22 06/27/2021 COMP. METAB OLIC PANEL (14) calcium 10.2 mg/dL 8.7-10 .2 Not Available [facility] ([facility]) [address] [place], [address], 07/01/2021 17:09:16 06/26/19 22 06/27/2021 COMP. METAB OLIC PANEL (14) protein, total 6.7 g/dL 6.0-8. 5 Not Available [facility] ([facility]) [address] [place], [address], 07/01/2021 17:09:16 06/26/19 22 06/27/2021 COMP. METAB OLIC PANEL (14) albumin 4.3 g/dL 3.8-4. 9 Not Available [facility] ([facility]) [address] [place], [address], 07/01/2021 17:09:16 06/26/19 22 06/27/2021 COMP. METAB OLIC PANEL (14) globulin, total 2.4 g/dL 1.5-4. 5 Not Available [facility] ([facility]) [address] [place], [address], 07/01/2021 17:09:16 06/26/19 22 06/27/2021 COMP. METAB OLIC PANEL (14) A/G ratio 1.8 1.2-2. 2 Not Available [facility] ([facility]) [address] [place], [address], 07/01/2021 17:09:16 06/26/19 22 06/27/2021 COMP. METAB OLIC PANEL (14) bilirubin, total 0.4 mg/dL 0.0-1. 2 Not Available [facility] ([facility]) [address] [place], [address], 07/01/2021 17:09:16 06/26/19 22 06/27/2021 COMP. METAB OLIC PANEL (14) alkaline phosphatase 66 IU/L 44-121 Not Available [facility]) [address] [place], [address], 07/01/2021 17:09:16 06/26/19 22 06/27/2021 COMP. METAB OLIC PANEL (14) AST (SGOT) 31 IU/L 0-40 Not Available [facility] ([facility]) [address] [place], [address], 07/01/2021 17:09:16 06/26/19 22 06/27/2021 COMP. METAB OLIC PANEL (14) ALT (SGPT) 40 IU/L 0-32 above high normal Not Available [facility] ([facility]) [address] [place], [address], 07/01/2021 17:09:16 06/26/19 22 06/27/2021 CBC, PLATE LET, NO DIFFE RENTI AL WBC TNP x10e3 /uL Test not perfo rmed. Whole blood speci men parti ally or compl etely clott ed. A commo n cause is insuf ficie nt mixin g upon colle ction . Not Available [facility] ([facility]) [address] [place], [address], 07/01/2021 17:09:17 06/26/19 22 06/27/2021 CBC, PLATE LET, NO DIFFE RENTI AL RBC TNP Test not perfo rmed Not Available [facility] ([facility]) [address] [place], [address], 07/01/2021 17:09:17 06/26/19 22 06/27/2021 CBC, PLATE LET, NO DIFFE RENTI AL hemoglobin TNP Test not perfo rmed Not Available [facility] ([facility]) [address] [place], [address], 07/01/2021 17:09:17 06/26/19 22 06/27/2021 CBC, PLATE LET, NO DIFFE RENTI AL hematocrit TNP Test not perfo rmed Not Available [facility] ([facility]) [address] [place], [address], 07/01/2021 17:09:17 06/26/19 22 06/27/2021 CBC, PLATE LET, NO DIFFE RENTI AL [employer]INEER Not Available [facility] ([facility]) [address] [place], [address], 07/01/2021 17:09:17 06/26/19 22 06/27/2021 CBC, PLATE LET, NO DIFFE RENTI AL [employer]CH [employer] Not Available [facility] ([facility]) [address] [place], [address], 07/01/2021 17:09:17 06/26/19 22 06/27/2021 CBC, PLATE LET, NO DIFFE RENTI AL MCHC [employer] FI[employer] ENGINEER Not Available [facility] ([facility]) [address] [facility], [place], [address], 07/01/2021 17:09:17 06/26/19 22 06/27/2021 CBC, PLATE LET, NO DIFFE RENTI AL 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 Whole blood speci men parti ally or compl etely clott ed. A commo n cause is insuf ficie nt mixin g upon colle ction . Not Available [facility] ([facility]) [address] [facility], [place], [address], 07/01/2021 17:09:17 06/26/19 22 06/27/2021 LIPID PANEL cholesterol, total 237 mg/dL 100-19 9 above high normal Not Available [facility] ([facility]) [address] [facility], [place], [address], 07/01/2021 17:09:17 06/26/19 22 06/27/2021 LIPID PANEL triglyceride s 118 mg/dL 0-149 Not Available [facility] [address] [facility], [place], [address], 07/01/2021 17:09:17 06/26/19 22 06/27/2021 LIPID PANEL HDL cholesterol 75 mg/dL >39 Not Available [facility] [address] [facility], [place], [address], 07/01/2021 17:09:17 06/26/19 22 06/27/2021 LIPID PANEL VLDL cholesterol krysten 21 mg/dL 5-40 Not Available [facility] [address] [facility], [place], [address], 07/01/2021 17:09:17 06/26/19 22 06/27/2021 LIPID PANEL LDL chol calc ([facility]) 141 mg/dL 0-99 above high normal Not Available [facility]) [address] [facility], [place], [address], 07/01/2021 17:09:17 06/26/19 22 06/27/2021 LIPID PANEL comment: NETWORK FIELD ENGINEER Not Available [facility] ([facility]) [address] [facility], [place], [address], 07/01/2021 17:09:17 06/26/19 22 06/27/2021 CARDI OVASC ULAR REPOR T interpretati on Note Medic al Direc tor's Note: Speci men Statu s Repor t: TNP. Test not perfo rmed. Whole blood speci men parti ally or compl etely clott ed. A commo n cause is insuf ficie nt mixin g upon colle ction . TEST: 81171 2 CBC, Plate let, No Diffe renti al Medic al Direc tor's Note: Pleas e note: The date and/o r time of colle ction was not indic ated on the requi sitio n as requi red by state and [place] law. The date of recei pt of the speci men was used as the colle ction date if not suppl ied. Suppl ement al repor t is avail able. Not Available [facility] ([facility]) [address] [facility], [place], [address], 07/01/2021 17:09:18 06/26/19 22 06/27/2021 CARDI OVASC ULAR REPOR T pdf . Not Available [facility] ([facility]) [address] [place], [address], 07/01/2021 17:09:18 06/26/19 22 07/01/2021 THYRO ID STIMU LATIN G HORMO NE TSH-icma 17 uu/mL above high normal Refer ence Range : Non-P regna nt Adult 0.450 -4.50 0 Pregn anna First Trime ster 0.100 -4.00 0 Secon d Trime ster 0.200 -4.00 0 Third Trime ster 0.300 -4.50 0 Not Available [facility] [address] [place] [address], [address], 07/01/2021 17:09:18 06/26/19 22 06/26/2021 MARLENA Mckinney NOTE please note Commen t The date and/o r time of colle ction was not indic ated on the requi sitio n as requi red by state and andrea al law. The date of recei pt of the speci men was used as the colle ction date if not suppl ied. Not Available [facility] ([facility]) [address] [facility], [place], [address], 07/01/2021 17:09:19 06/26/19 22 06/27/2021 SPECI MEN STATU S REPOR T specimen status report TNP Test not perfo rmed. Whole blood speci men parti ally or compl etely clott ed. A commo n cause is insuf ficie nt mixin g upon colle ction . TEST: 23113 2 CBC, Plate let, No Diffe renti al Not Available [facility] ([facility]) [address] [facility], [place], [address], 07/01/2021 17:09:19 03/25/20 22 03/25/2022 LIPID PANEL cholesterol, total 258.1 mg/dL 140.0- 200.0 above high normal Not Available [facility] ([facility]) [address] [facility], [place], [address], 03/26/2022 06:14:55 03/25/20 22 03/25/2022 LIPID PANEL triglyceride s 218 mg/dL <=150 above high normal Not Available [facility] ([facility]) [address] [place], [address], 03/26/2022 06:14:55 03/25/20 22 03/25/2022 LIPID PANEL HDL cholesterol 65.1 mg/dL 40.0-1 00.0 Not Available [facility] ([facility]) [address] [place], [address], 03/26/2022 06:14:55 03/25/20 22 03/25/2022 LIPID PANEL VLDL cholesterol krysten 43.60 mg/dL 5.00-4 0.00 above high normal Not Available [facility] ([facility]) [address] [place], [address], 03/26/2022 06:14:55 03/25/20 22 03/25/2022 LIPID PANEL LDL chol calc ([facility]) 153.6 Not Available [facility] [address] [place], [address], 03/26/2022 06:14:55 03/25/20 22 03/25/2022 COMP. METAB OLIC PANEL (14) glucose 110 mg/dL 65-99 above high normal ANION GP 19.0 mmol/ L N OSMOL 280.0 mOsM/ L N REFER ENCE RANGE : 275.0 -301. 0 Not Available [facility] ([facility]) [address] [place], [address], 03/26/2022 06:14:56 03/25/20 22 03/25/2022 COMP. METAB OLIC PANEL (14) BUN 15 mg/dL 8-26 Not Available [facility] ([facility]) [address] [place], [address], 03/26/2022 06:14:56 03/25/20 22 03/25/2022 COMP. METAB OLIC PANEL (14) creatinine 0.65 mg/dL 0.50-1 .40 Not Available [facility]) [address] [facility] [place], [address], 03/26/2022 06:14:56 03/25/20 22 03/25/2022 COMP. METAB OLIC PANEL (14) eGFR 105 mL/mi n/1.7 3 >=60 Not Available [facility]) [address] [facility] [place], [address], 03/26/2022 06:14:56 03/25/20 22 03/25/2022 COMP. METAB OLIC PANEL (14) BUN/creatini ne ratio 23.7 Not Available [facility] [address] [facility] [place], [address], 03/26/2022 06:14:56 03/25/20 22 03/25/2022 COMP. METAB OLIC PANEL (14) sodium 139.5 mmol/ L 136.0- 144.0 Not Available [facility]) [address] [facility] [place], [address], 03/26/2022 06:14:56 03/25/20 22 03/25/2022 COMP. METAB OLIC PANEL (14) potassium 4.4 mmol/ L 3.5-5. 3 Not Available [facility] ([facility]) [address] [facility] [place], [address], 03/26/2022 06:14:56 03/25/20 22 03/25/2022 COMP. METAB OLIC PANEL (14) chloride 101 mmol/ l 101-11 1 Not Available [facility] ([facility]) [address] [facility] [place], [address], 03/26/2022 06:14:56 03/25/20 22 03/25/2022 COMP. METAB OLIC PANEL (14) carbon dioxide, total 24.4 mmol/ L 21.0-3 2.0 Not Available [facility] ([facility]) [address] [place], [address], 03/26/2022 06:14:56 03/25/20 22 03/25/2022 COMP. METAB OLIC PANEL (14) calcium 10.8 mg/dL 8.2-10 .0 above high normal Not Available [facility] ([facility]) [address] [place], [address], 03/26/2022 06:14:56 03/25/20 22 03/25/2022 COMP. METAB OLIC PANEL (14) protein, total 7.1 g/dL 6.7-8. 2 Not Available [facility] ([facility]) [address] [place], [address], 03/26/2022 06:14:56 03/25/20 22 03/25/2022 COMP. METAB OLIC PANEL (14) albumin 4.8 g/dL 3.5-5. 5 Not Available [facility] ([facility]) [address] [place], [address], 03/26/2022 06:14:56 03/25/20 22 03/25/2022 COMP. METAB OLIC PANEL (14) globulin, total 2.3 g/dL 1.5-4. 5 Not Available [facility] ([facility] [address] [place], [address], 03/26/2022 06:14:56 03/25/20 22 03/25/2022 COMP. METAB OLIC PANEL (14) A/G ratio 2.0 Not Available [facility] [address] [place], [address], 03/26/2022 06:14:56 03/25/20 22 03/25/2022 COMP. METAB OLIC PANEL (14) bilirubin, total 0.4 mg/dL 0.0-1. 2 Not Available [facility] ([facility] [address] [place], [address], 03/26/2022 06:14:56 03/25/20 22 03/25/2022 COMP. METAB OLIC PANEL (14) alkaline phosphatase 70.7 IU/L 42.0-1 21.0 Not Available [facility]) [address] [facility], [place], [address], 03/26/2022 06:14:56 03/25/20 22 03/25/2022 COMP. METAB OLIC PANEL (14) AST (SGOT) 23.7 U/L 10.0-4 2.0 Not Available [facility] ([facility] [address] [facility], [place], [address], 03/26/2022 06:14:56 03/25/20 22 03/25/2022 COMP. METAB OLIC PANEL (14) ALT (SGPT) 58.1 U/L 10.0-6 0.0 Not Available [facility] ([facility]) [address] [facility], [place], [address], 03/26/2022 06:14:56 03/25/20 22 03/25/2022 CBC, PLATE LET, NO DIFFE RENTI AL WBC 5.9 K/uL 3.4-10 .8 Not Available [facility] ([facility] [address] [place], [address], 03/26/2022 06:14:57 03/25/20 22 03/25/2022 CBC, PLATE LET, NO DIFFE RENTI AL RBC 5.5 M/uL 4.2-5. 4 above high normal Not Available [facility] ([facility] [address] [place], [address], 03/26/2022 06:14:57 03/25/20 22 03/25/2022 CBC, PLATE LET, NO DIFFE RENTI AL hemoglobin 16.2 g/dL 11.5-1 5.5 above high normal Not Available [facility] ([facility]) [address] [facility], [place], [address], 03/26/2022 06:14:57 03/25/2003/25/2022 CBC, PLATE LET, NO DIFFE RENTI AL hematocrit 48.3 % 36.0-4 8.0 above high normal Not Available [facility]) [address] [facility], [place], [address], 03/26/2022 06:14:57 03/25/2003/25/2022 CBC, PLATE LET, NO DIFFE RENTI AL MCV 88 fL 80-95 Not Available [facility]) [address] [facility], [place], [address], 03/26/2022 06:14:57 03/25/20 22 03/25/2022 CBC, PLATE LET, NO DIFFE RENTI AL MCH 30 pg 27-32 Not Available [facility] [address] [facility], [place], [address], 03/26/2022 06:14:57 03/25/2003/25/2022 CBC, PLATE LET, NO DIFFE RENTI AL MCHC 34 g/dL 32-36 Not Available [facility] ([facility] [address] [place], [address], 03/26/2022 06:14:57 03/25/2003/25/2022 CBC, PLATE LET, NO DIFFE RENTI AL RDW 12.1 % 11.5-1 4.5 Not Available [facility] ([facility]) [address] [place], [address], 03/26/2022 06:14:57 03/25/2003/25/2022 CBC, PLATE LET, NO DIFFE RENTI AL platelets 233 K/uL 155-37 9 MPV 11.2 FL 8.9-1 2.7 N Not Available [facility] ([facility] [address] [place], [address], 03/26/2022 06:14:57 03/25/20 22 03/25/2022 CBC, PLATE LET, NO DIFFE RENTI AL NRBC 0 % Not Available [facility]) [address] [facility], [place], [address], 03/26/2022 06:14:57 03/25/20 22 03/25/2022 CARDI OVASC ULAR REPOR T interpretati on Note Suppl ement al repor t is avail able. Not Available [facility] ([facility]) [address] [facility], [place], [address], 03/26/2022 06:14:56 03/25/20 22 03/25/2022 CARDI OVASC ULAR REPOR T pdf . Not Available [facility]) [address] [facility], [place], [address], 03/26/2022 06:14:56 06/24/19 22 06/24/2021 CT, lumba r spine , w/o contr ast No observ ation record ed. [facility] [address] [place], [address], 06/25/2021 10:53:34 06/24/19 22 06/24/2021 CT, pelvi s, w/wo contr ast No observ ation record ed. [facility] [address] [place], [address], 06/25/2021 10:53:34 10/21/19 22 10/20/2021 MRI, lumba r spine , w/o contr ast No observ ation record ed. [email or web address] [address] [place], [address], 10/21/2021 10:22:04 Result Notes None recorded. Problems Name Problem SNOMED Code Status Onset Date Resolution Date Notes Provider Name and Address Organization Details Recorded Time Anemia [id number] Active Nu Mejia MA null, [place] - [facility] 6 16:26:56 Cervical syndrome [id number] Active Nu Mejia MA null, [place] - [facility] 6 16:26:56 Toothache 64806422 Active Nu Mejia [place] null, [place] - [facility] 6 16:26:56 Unexplained weight loss 428813320 Active [place] Me[place] [facility] 6 16:26:56 Near syncope 172173775 Active Nu Mej[place] [facility] 16:26:56 Cellulitis 466447745 Active Lola Mckeon PA-C Attn: Raeann heart,[address] [place], [address], [facility] - [facility] 13:54:18 Nerve root disorder 70537987 Active CARRILLO Bowser, [place] - [facility] 16:26:56 Problem Notes None recorded. Procedures Surgical History Date Name Laterality Status Provider Name and Address Organization Details Recorded Time Back Surgery completed Lavonne Hernandez MA [place] - [facility] 10/03/2018 14:59:10 Dilation and Curettage completed Priscila Rodriguez MA [place] - [facility] 05/18/2014 14:57:07 Imaging Results Imaging Date Name Status LastModified by Organiz ation Details LastModified Time 06/24/2021 CT, lumbar spine, w/o contrast completed herrera George [facility] (Imaging) [address] [place], [address], 06/25/2021 10:53:34 06/24/2021 CT, pelvis, w/wo contrast completed chantell George [facility] (Imaging) [address] [place], [address], 06/25/2021 10:53:34 10/20/2021 MRI, lumbar spine, w[facility]o [facility] [address] [place], [address], 10/21/2021 10:22:04 Procedure Notes None recorded. Medical Equipment None Reported. Allergies Allergen ID Allergen Name Allergen Category Reaction Reaction Severity Criticality Documentation Date Start Date Code Code System Note Provider Name and Address Organization Details Recorded Time 755425 alendrona te sodium medicatio n Not available Not available Not available 04/17/202018843 2 RxNorm Not Available Not Available Not Available 34507 kiwi fruit extract food Not available Not available Not available 05/18/2014 44590 01 RxNorm Not Available Not Available Not Available 08019 honey bee venom environme nt Not available Not available Not available 05/18/2014 68597 7 RxNorm Not Available Not Available Not Available 71620 trazodone medicatio n Not available Not available Not available 10/10/2015 71001 RxNorm Not Available Not Available Not Available Medications Name Sig Start Date Stop Date Status Note LastModified by Organization Details LastModified Time Prescript ion - Renewal 02/20 completed Not Available Not Available Not Available quetiapin e 25 mg tablet 07/13 completed Not Available Not Available Not Available fluoxetin e 40 mg capsule 02/20 completed Not Available Not Available Not Available cyclobenz aprine 10 mg tablet TAKE ONE TABLET BY MOUTH THREE TIMES A DAY NEEDED active Not Available Not Available No t Available amoxicill in 500 mg capsule 12/15 completed Not Available Not Available Not Available bupropion HCl SR 150 mg tablet,12 hr sustained -release 10/09 completed Not Available Not Available Not Available prednison e 10 mg tablet Take 5 tablets every day by oral route as directed . 09/06 completed Not Available Not Available Not Available gabapenti n 600 mg tablet take 1 tablet by mouth three times a day 12/14 completed Not Available Not Available Not Available lamotrigi ne 200 mg tablet 10/09 completed Not Available Not Available Not Available venlafaxi ne 75 mg tablet 07/13 completed Not Available Not Available Not Available tizanidin e 2 mg tablet 02/20 completed Not Available Not Available Not Available clindamyc in HCl 300 mg capsule 07/13 completed Not Available Not Available Not Available trazodone 50 mg tablet 02/20 completed Not Available Not Available Not Available ibuprofen 800 mg tablet TID 03/25 completed Not Available Not Available Not Available tizanidin e 4 mg tablet 02/20 completed Not Available Not Available Not Available sulfameth oxazole 400 mg-trimet hoprim 80 mg tablet 06/25 completed Not Available Not Available Not Available hydrocodo ne 5 mg-acetam inophen 325 mg tablet Take 1 tablet every 8 hours by oral route as needed for 30 days. 03/25 completed Not Available Not Available Not Available meloxicam 15 mg tablet TAKE ONE TABLET BY MOUTH DAILY 06/25 completed Not Available Not Available Not Available alendrona te 70 mg tablet 1 (70 MG) BY MOUTH EVERY WEEK 05/18 completed Not Available Not Available Not Available metronida zole 500 mg tablet 07/13 completed Not Available Not Available Not Available ciproflox acin 500 mg tablet 06/25 completed Not Available Not Available Not Available sulfameth oxazole 800 mg-trimet hoprim 160 mg tablet Take 1 tablet every 12 hours by oral route for 10 days. 06/25 completed Not Available Not Available Not Available lamotrigi ne 25 mg tablet 07/13 completed Not Available Not Available Not Available levothyro xine 75 mcg tablet TAKE ONE TABLET BY MOUTH DAILY active Not Available Not Available No t Available levothyro xine 50 mcg tablet TAKE 1 TABLET BY MOUTH EVERY DAY 10/15 completed Not Available Not Available Not Available hydrocodo ne 7.5 mg-acetam inophen 325 mg tablet Take 1 tablet every 8 hours by oral route for 30 days. 06/10 completed Not Available Not Available Not Available cephalexi n 500 mg capsule Take 1 capsule every 8 hours by oral route as directed for 10 days. 04/17 completed Not Available Not Available Not Available venlafaxi ne 50 mg tablet 10/09 completed Not Available Not Available Not Available diclofena c potassium 50 mg tablet 07/13 completed Not Available Not Available Not Available gabapenti n 300 mg capsule TAKE 1 CAPSULES BY MOUTH THREE TIMES A DAY 2022 active Not Available Not Available Not Avai lable buspirone 7.5 mg tablet 02/20 completed Not Available Not Available Not Available omeprazol e 20 mg capsule,d elayed release 03/25 completed Not Available Not Available Not Available diclofena c sodium 75 mg tablet,de layed release TAKE ONE TABLET BY MOUTH TWICE A DAY 2022 active Not Available Not Available Not Avai lable acetamino phen 300 mg-codein e 60 mg tablet TAKE ONE TABLET BY MOUTH DAILY EVERY EIGHT HOURS NEEDED active Not Available Not Available No t Available furosemid e 20 mg tablet TAKE 1 TABLET BY MOUTH EVERY DAY 04/17 completed PRN Not Available Not Available Not Available methylpre dnisolone 4 mg tablets in a dose pack FOLLOW PACKAGE DIRECTIO NS 03/25 completed Not Available Not Available Not Available dicloxaci llin 250 mg capsule 02/20 completed Not Available Not Available Not Available fluoxetin e 20 mg capsule 07/13 completed Not Available Not Available Not Available diazepam 5 mg tablet 07/13 completed Not Available Not Available Not Available amoxicill in 875 mg-potass ium clavulana te 125 mg tablet 07/13 completed Not Available Not Available Not Available neomycin- polymyxin -hydrocor t 3.5 mg-10,000 unit/mL-1 % ear drops,margarito p INSTILL 4 DROPS INTO AFFECTED EAR(S) BY OTIC ROUTE 3 TIMES PER DAYx7 days active Not Available Not Available No t Available cyclobenz aprine 5 mg tablet TAKE 1 TABLET BY MOUTH THREE TIMES DAILY FOR UP TO 5 DAYS NEEDED FOR MUSCLE SPASMS 12/24 completed Not Available Not Available Not Available ciproflox acin 0.3 %-dexamet hasone 0.1 % ear drops,margarito pension INSTILL 4 DROPS INTO AFFECTED EAR(S) BY OTIC ROUTE 2 TIMES PER DAY FOR 7 DAYS 2021 active Not Available Not Available Not Avai lable bupropion HCl XL 300 mg 24 hr tablet, extended release 07/13 completed Not Available Not Available Not Available bupropion HCl XL 150 mg 24 hr tablet, extended release 02/04 completed Not Available Not Available Not Available nitrofura ntoin monohydra te/macroc rystals 100 mg capsule TAKE 1 CAPSULE BY MOUTH TWICE DAILY FOR 7 DAYS 03/25 completed Not Available Not Available Not Available pregabali n 150 mg capsule Take 1 capsule 3 times a day by oral route for 30 days. 06/06 completed Not Available Not Available Not Available Lyrica 100 mg capsule TAKE 1 CAPUSLE 3 TIMES DAILY 10/03 completed Not Available Not Available Not Available Lyrica 09/06 completed Getting from in [facility] Not Available Not Available Not Available Xeroform Petrolatu m Dressing 5 X 9 APPLY ONE APPLICAT ION TOPICALL Y DAILY 06/25 completed Not Available Not Available Not Available FE 90 Plus 90 mg-1 mg-12 mcg-50 mg tablet Take 1 tablet every day by oral route for 90 days. 10/09 completed Not Available Not Available Not Available Vitals Date Recorded Body height Body mass index (BMI) Body weight Body temperature Oxygen saturation Oxygen saturation in Arterial blood by Pulse oximetry Heart rate Systolic blood pressure Diastolic blood pressure Provider Name and Address Organization Details Last Updated DateTime 0 175.26 cm 24.4 kg/m2 36065.7 4 g 97.2 [degF] 90 % 90 % 92 /min 110 mm[Hg] 82 mm[Hg] Rubia Dhaliwal MA [facility] 0 14:48:08 Date Recorded Body weight Body height Body mass index (BMI) Oxygen saturation Oxygen saturation in Arterial blood by Pulse oximetry Body temperature Heart rate Systolic blood pressure Diastolic blood pressure Provider Name and Address Organization Details Last Updated DateTime 2 95023.7 4 g 172.72 cm 25.1 kg/m2 99 % 99 % 97.8 [degF] 80 /min 128 mm[Hg] 88 mm[Hg] Carmen Cortes MA [facility] 2 14:06:13 Date Recorded Body height Body temperature Oxygen saturation Oxygen saturation in Arterial blood by Pulse oximetry Heart rate Systolic blood pressure Diastolic blood pressure Provider Name and Address Organization Details Last Updated DateTime 2 172.72 cm 97.9 [degF] 99 % 99 % 91 /min 130 mm[Hg] 88 mm[Hg] Rubia waite MA [facility] 2 14:59:02 Date Recorded Body height Body mass index (BMI) Body weight Body temperature Oxygen saturation Oxygen saturation in Arterial blood by Pulse oximetry Heart rate Systolic blood pressure Diastolic blood pressure Provider Name and Address Organization Details Last Updated DateTime 2 172.72 cm 28.6 kg/m2 42109.3 7 g 97.4 [degF] 97 % 97 % 86 /min 110 mm[Hg] 62 mm[Hg] Priscila jolly MA [facility] 2 15:31:09 Social History Question Answer Notes LastModified by Organizat ion Details LastModified Time Tobacco Smoking Status Current Every Day Smoker Priscila Rodriguez MA null, [facility] 05/18/2014 14:57:07 What Is Your Level Of Alcohol Consumption? Occasional Information not available 06/25/2021 What Is Your Level Of Caffeine Consumption? Moderate Information not available 06/25/2021 How Much Tobacco Do You Chew? None Information not available 12/16/2018 In The 14 Days Before Symptom Onset, Have You Had Close Contact With A Laboratory-confir med COVID-19 While That Case Was Ill? No Information not available 06/25/2021 In The 14 Days Before Symptom Onset, Have You Had Close Contact With A Person Who Is Under Investigation For COVID-19 While That Person Was Ill? No Information not available 06/25/2021 Have You Been To An Area Known To Be High Risk For COVID-19? No Information not available 06/25/2021 Are You Currently Employed? No Information not available 04/17/2020 What Type Of Diet Are You Following? REGULAR Information not available 12/16/2018 Which Illicit Or Recreational Drugs Have You Used? None Information not available 12/16/2018 Do You Or Have You Ever Used E-cigarettes Or Vape? Never Used Electronic Cigarettes Information not available 12/16/2018 What Is Your Occupation? Disabled Information not available 04/17/2020 Hard Of Hearing Or Deaf In One Or Both Ears? No Information not available 12/16/2018 Legally Blind In One Or Both Eyes? No Information no t available 12/16/2018 Live Alone Or With Others? Alone Information not available 04/17/2020 What Was The Date Of Your Most Recent Tobacco Screening? 03/25/2022 Information not available 03/25/2022 What Is Your Relationship Status? Single Information not available 06/25/2021 Smoke Alarm In Home Yes Information not available 12/16/2018 Do You Have Smoke And Carbon Monoxide Detectors In Your Home? Yes Information not available 06/25/2021 At What Age Did You Start Smoking Tobacco? 13 Information not available 12/16/2018 Are You Passively Exposed To Smoke? Yes Information no t available 06/25/2021 Do You Or Have You Ever Used Smokeless Tobacco? Never Used Smokeless Tobacco Information not available 12/16/2018 How Much Tobacco Do You Smoke? 1 PPD Information not available 09/06/2018 General Stress Level Medium Information not available 04/17/2020 Do You Feel Stressed (tense, Restless, Nervous, Or Anxious, Or Unable To Sleep At Night)? [id number] Information not available 03/25/2022 Do You Use Any Illicit Or Recreational Drugs? No Information not available 03/25/2022 Has Tobacco Cessation Counseling Been Provided? Yes Information not available 09/06/2018 On What Date Was Tobacco Cessation Counseling Provided? 03/25/2022 Information not available 03/25/2022 How Many Years Have You Smoked Tobacco? 30 [email or web address] Information not available 05/18/2014 Do You Or Have You Ever Used Any Other Forms Of Tobacco Or Nicotine? No Information not available 06/25/2021 Sex: Unknown Functional Status Question Answer Note LastModified by Organizat ion Details LastModified Time Are you able to care for yourself? Yes Information not available 04/17/2020 What is your exercise level? Occasional Information not available 12/16/2018 Mental Status None recorded. Family History Relationship Description Onset Age of this Age Resolved Age Notes LastModified by Organization Details LastModified Time Father Depressive disorder [email or web address] Not available 12/01 16:26:56 Mother Hypertensive disorder [email or web address] Not available 12/01 16:26:56 Mother Osteoporosis [email or web address] Not av ailable 12/16/2015 16:26:56 Sister Depressive disorder [email or web address] Not available 12/01 16:26:56 Medical History Condition Response Coronary Artery Disease N Other N High Blood Pressure N Atrial Fibrillation N Kidney or Bladder Problems N Thyroid Problems Y GI Problems N Depression Y COPD N Blood Clots N Skin Problems N Anemia Y Heart Attack (GA) N Anxiety Disorder N Diabetes N Muscle, Joint, or Bone Problems N Seizures/Epilepsy N Acid Reflux (GERD) N Cancer N Stroke N Asthma N Allergies N High Cholesterol N Hepatitis N Liver Disease N Headaches N Heart Failure N Osteoporosis Y Gynecological History Statement/Question Response Date of Last Mammogram Date of LMP Obstetrics History GPAL:G 0 P 0 0 0 0 Immunizations Vaccine Type Date Status Note Provider Nam e and Address Organization Details Recorded Time Tdap 05/22/2014 completed Not Available [facility] 05/20/2019 02:42:04 Past Encounters Encounter ID Performer Location Encounter Start Date Encounter Closed Date Diagnosis/Indication Diagnosis SNOMED-CT Code Diagnosis ICD10 Code Diagnosis Note [id number] Lola Mckeon PA-C [facility] [address] [place] [address] 05/18/2014 14:49:05 05/23/2014 11:06:48 Nerve root disorder 59697376 [id number] Hortencia Verdin [facility] [address] [place] [address] 05/22/2014 10:51:01 05/23/2014 11:23:37 Administration of diphtheria, pertussis, and tetanus vaccine 493015870 [id number] [facility] [address] [place] [address] 06/06/2014 11:32:32 06/06/2014 13:10:05 Nerve root disorder 31292591 [id number] Priscila Rodriguez MA [facility] [address] [place] [address] 06/13/2014 15:04:45 06/13/2014 15:26:48 Nerve root disorder 82674516 [id number] Jennifer Coatesyvonne [facility] [address] [place] [address] 11/01/2014 10:49:13 11/20/2014 14:24:02 Adult health examination 281616143 Nerve root disorder 85168704 [id number] Jennifer Hayward [facility] [address] [place] [address] 11/09/2014 10:50:33 11/09/2014 11:13:16 Nerve root disorder 93488037 Anemia 025533288 [id number] [facility] [address] [place] [address] 12/07/2014 14:37:41 12/07/2014 15:15:53 Anemia 164789665 Nerve root disorder 77071235 [id number] [facility] [address] [place] [address] 01/28/2015 11:11:04 01/28/2015 12:07:10 Anemia 735346715 Nerve root disorder 61905149 [id number] Lola Mckeon PA-C [facility] [address] [place] [address] 06/14/2015 15:13:57 06/14/2015 15:40:12 Cervical syndrome 343785738 M53.1 Toothache 76523234 K08.8 [id number] oLla Mckeon PA-C [facility] [address] [place] [address] 06/25/2015 14:09:08 06/25/2015 14:36:08 Anemia 321489203 D64.9 [id number] Lola Mckeon PA-C [facility] [address] [place] [address] 07/05/2015 14:40:00 07/05/2015 16:25:32 Cervical syndrome 306855879 M53.1 Toothache 57388541 K08.8 [id number] Lola Mckeon PA-C [facility] [address] [place] [address] 08/26/2015 15:43:34 08/26/2015 16:11:29 Anemia 509127923 D64.9 Unexplaine d weight loss 532761598 R63.4 Near syncope 809518533 R 55 Nerve root disorder 7227 4001 M54.10 [id number] Lola Mckeon PA-C [facility] [address] [place] [address] 10/10/2015 11:38:48 10/10/2015 12:16:53 Anemia 739147515 D64.9 Cervical syndrome 403552 006 M53.1 Unexplaine d weight loss 517036082 R63.4 [id number] Lola Mckeon PA-C [facility] [address] [place] [address] 12/16/2015 16:21:08 12/16/2015 16:54:07 Cellulitis 988071360 L03.90 [id number] Lola Mckeon PA-C [facility] [address] [place] [address] 02/21/2016 11:10:08 02/21/2016 12:21:59 Nerve root disorder 22454689 M54.10 Cervical radiculopathy 73847362 M54.12 [id number] Lola Mckeon PA-C [facility] [address] [place] [address] 10/08/2016 16:41:45 10/09/2016 16:47:06 Cervical radiculopathy 41415242 M54.12 Screening for malignant neoplasm of breast 933448205 Z12.31 Unexplaine d weight loss 928869230 R63.4 [id number] Lola Mckeon PA-C [facility] [address] [place] [address] 02/04/2017 15:15:23 02/04/2017 16:35:44 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 Lumbar radiculopathy 128 566141 M54.16 Cervical radiculopathy 68252914 M54.12 [id number] Lola Mckeon PA-C [facility] [address] [place] [address] 02/17/2017 14:52:36 02/17/2017 16:13:42 Osteonecrosis 911305909 M87.180 Acquired hypothyroidism 109479312 E03.9 [id number] Lola Mckeon PA-C [facility] [address] [place] [address] 03/19/2017 14:40:24 03/19/2017 16:56:41 Cervical radiculopathy 90011388 M54.12 Pre-surger y evaluation 179664083 Z01.236 [id number] Lola Mckeon PA-C [facility] [address] [place] [address] 04/19/2017 13:57:50 04/19/2017 17:04:42 Cervical syndrome 983403125 M53.1 [id number] Lola Mckeon PA-C [facility] [address] [place] [address] 05/20/2017 17:01:31 05/21/2017 11:42:52 Opioid dependence 12395372 F11.20 Cervical radiculopathy 10151960 M54.12 Edema of l ower extremity 754693805 R60.0 [id number] Lola Mckeon PA-C [facility] [address] [place] [address] 05/28/2017 14:43:55 05/28/2017 15:21:00 Long-term drug therapy 407634492 Z79.899 Cervical radiculopathy 97399639 M54.12 [id number] Lola Mckeon PA-C [facility] [address] [place] [address] 07/13/2017 15:20:46 07/13/2017 16:10:40 Cervical radiculopathy 21559042 M54.12 [id number] Lola Mckeon PA-C [facility] [address] [place] [address] 12/14/2017 17:05:56 12/14/2017 18:47:27 Cervical radiculopathy 97134164 M54.12 [id number] KRISTOPHER Wilkins [facility] [address] [place] [address] 12/28/2017 14:53:06 12/28/2017 15:42:47 Cervical radiculopathy 99927246 M54.12 [id number] KRISTOPHER Wilkins [address] [place] [address] 05/18/2018 15:30:51 05/18/2018 16:45:10 Long-term drug therapy 025102963 Z79.899 Cervical radiculopathy 95069776 M54.12 [id number] Lola Mckeon PA-C [facility] [address] [place] [address] 09/06/2018 13:58:26 09/06/2018 15:13:15 Lumbar radiculopathy 102439302 M54.16 Cervical radiculopathy 47534868 M54.12 Pre-surger y evaluation 720230401 Z01.818 Thoracic back pain 47103 8004 M54.6 [id number] Lola Mckeon PA-C [facility] [address] [place] [address] 10/03/2018 14:46:16 10/04/2018 11:10:35 Cervical syndrome 747423384 M53.1 Lumbar radiculopathy 128 266512 M54.16 [id number] Lola Mckeon PA-C [facility] [address] [place] [address] 12/16/2018 11:51:11 12/16/2018 12:32:18 Cervical syndrome 432687361 M53.1 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 [id number] Lola Mckeon PA-C [facility] [address] [place] [address] 03/03/2019 10:42:53 03/03/2019 12:29:00 Fracture of proximal phalanx of finger 793667898 S62.610A [id number] Lola Mckeon PA-C [facility] [address] [place] [address] 05/29/2019 14:49:49 05/29/2019 16:46:36 Closed fracture of fourth metacarpal 553776453 S62.314G Pre-surger y evaluation 925349710 Z01.983 [id number] Lola Mckeon PA-C [facility] [address] [place] [address] 11/08/2019 09:56:11 11/08/2019 17:03:33 Peripheral arterial occlusive disease 396286518 I73.9 Cervical radiculopathy 34823332 M54.12 Screening mammography 24 645561 Z12.31 Hypothyroidism 53931828 E00.0 [id number] KRISTOPHER Wilkins [facility] [address] [place] [address] 04/17/2020 14:40:23 04/17/2020 15:47:39 Cellulitis of lower leg 494373508 L03.546 [id number] Rubia Dhaliwal MA [facility] [address] [place] [address] 05/30/2020 16:24:13 05/31/2020 08:19:22 Long-term drug therapy 951031036 Z79.974 [id number] Lola Mckeon PA-C [facility] [address] [place] [address] 06/25/2021 13:45:55 06/25/2021 14:40:20 Cervical syndrome 565756513 M53.1 Cervical radiculopathy 42260759 M54.12 Hypothyroidism 12566776 E00.0 [id number] Lola Mckeon PA-C [facility] [address] [place] [address] 07/08/2021 14:53:52 07/08/2021 15:28:50 Cervical syndrome 856853658 M53.1 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 938317801 E06.3 [id number] Lola Mckeon PA-C [facility] [address] [place] [address] 03/25/2022 15:24:52 03/25/2022 16:15:27 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 Hypothyroidism 47723848 E00.0 Cervical radiculopathy 17894030 M54.12 Health Concerns Section Related Observation LastModified by Organization Detai ls LastModified Time None Recorded Concern Status LastModified by Organization Details LastModified Time None Recorded Advance Directives Directive None Recorded Payers Encounter Date Sequence Insurance Name Policy Number Policy Urrutia Covered Member ID Urrutia Member ID Guarantor Name 04/17/2020 1 [employer] (MEDICARE REPLACEMENT/AD VANTAGE - PPO) Brooke Gallardo [id number] Brooke Gallardo 05/30/2020 1 [employer] (MEDICARE REPLACEMENT/AD VANTAGE - PPO) Brooke Gallardo [id number] Brooke Gallardo 05/30/2020 2 [place] MED[place]ARE OR MEDICARE REPLACEMENT PRIMARY) Brooke Gallardo [id number] Brooke Gallardo 06/25/2021 1 [employer] (MEDICARE REPLACEMENT/AD VANTAGE - PPO) Brooke Gallardo [id number] Brooke Gallardo 06/25/2021 2 [place]ICARE REPLACEMENT [place]IMARY) Brooke Gallardo [id number] Brooke Gallardo 07/08/2021 1 [employer] (MEDICARE REPLACEMENT/AD VANTAGE - PPO) Brooke Gallardo [id number] Brooke Gallardo 07/08/2021 2 [place] MEDICARE REPLACEMENT [place]IMARY) Brooke Gallardo [id number] Brooke Gallardo 03/25/2022 1 [employer] (MEDICARE REPLACEMENT/AD VANTAGE - PPO) Brooke Gallardo [id number] Brooke Gallardo 03/25/2022 2 [place] MEDICARE REPLACEMENT PRIMARY) Brooke Gallardo [id number] Brooke Gallardo Notes Date Note Type Note Provider Name and Address Organization Details Recorded Time 04/17/2020 text/html Right lower extremity cellulitis. This started about 3 days ago. Area is red and warm. Since that time the area has increased in size. She notes that the area is pruritic and is not sure if she was bit by anything. Denies any previous skin infections . She has been using an anti-itch cream with mild relief. Elevating the leg helps with some of the itching. No fevers, chills, nausea, or vomiting. Lola Mckeon PA-C Attn: Accounting,[address] [facility], [place], [address], [facility] 04/17/2020 15:07:01 06/25/2021 text/html returns for follow up...also fell on the ice and injured her back...seen in ER..neeeds labs and refill Lola Mckeon PA-C Attn: Accounting,[address] [facility], [place], [address], [place] 06/25/2021 14:37:53 07/08/2021 text/html see thyroid tsh...has since resumed her thyroid meds...see BUN...also elevated Lola Mckeon PA-C Attn: Accounting,[address] [facility], [place], [address], [facility] 07/08/2021 15:24:39 03/25/2022 text/html check up...still waiting to hear from the specialist re MRI...needs refills and rt ear is clogging alot Lola Mckeon PA-C Attn: Accounting,[address] , [place], [address], [facility] 03/25/2022 15:44:55 OBGyn Episode No OBEpisode recorded.
--- OUTSIDE RECORDS SUMMARY | 2024-08-08 13:44 | XMS_ITS | Referral Summary ---
Author Organization [facility] Address [address] [place] [address] Care Team Providers Care Pad Machine Offbearer Name Role Phone Gray Mckeon Primary Care Provider [phone] Joey Peng MD Unavailable [phone] Allergies Active Allergy Reactions Criticality Noted Date Comments Alendronate Other (See comments) Medium 12/26/2019 Causing deteriorating jaw bone Venom-Honey Bee Swelling Medium 12/26/2019 Diclofenac Other (See comments) Low 07/11/2022 Bleeding Kiwi Anaphylaxis High 07/11/2022 Tramadol Anaphylaxis High 12/26/2019 Trazodone Swelling Medium 07/11/2022 Medications gabapentin (NEURONTIN) 300 mg capsule 0 Active levothyroxine (SYNTHROID) 75 mcg tablet 0 Active cyclobenzaprine (FLEXERIL) 10 mg tablet 3 Active acetaminophen (TYLENOL) 325 mg tabletIndicatio ns:Fever,Pain Take 2 tablets (650 mg total) by mouth every 4 (four) hours as needed for pain 30 tablet 3 Active senna-docusate (PERICOLACE) 8.6-50 mg Take 1 tablet by mouth 2 (two) times a day as needed for constipation 12 tablet 3 Active Active Problems Problem Noted Date Diagnosed Date Retroperitoneal hematoma 07/11/2022 Bilateral numbness and tingling of arms and legs 01/18/2020 Anemia 12/26/2019 Chronic bilateral low back pain with right-sided sciatica 03/16/2018 Depression 10/05/2016 Immunizations Immunization Administration Dates Next Due Tdap 01/31/2019,05/22/2014 Social History Tobacco Use Types Packs/Day Years Used Date Smoking Tobacco: Every Day Cigarettes Smokeless Tobacco: Never Tobacco Cessation:Ready to Q uit: Not Asked; Counseling Given: Not Answered Personal Safety Answer Date Recorded Getting School Help Needed Not on file 07/15 Comments Unknown Sex and Gender Information Value Date Recorded Sex Assigned at Not on file 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 Gender Identity Female 01/12/2020 7:31 AM CDT Sexual Orientation Straight 01/12/2020 7: 31 AM CDT Last Filed Vital Signs Vital Sign Reading Time Taken Comments Blood Pressure 120/78 07/12/2022 3:49 PM CDT Pulse 84 07/12/2022 3:49 PM CDT Temperature 36.8 C (98.2 F) 07/12/2022 3:49 PM CDT Respiratory Rate 16 07/12/2022 3:49 PM CDT Oxygen Saturation 95% 07/12/2022 3:49 PM CDT Inhaled Oxygen Concentration - - Weight 81.4 kg (179 lb 6.4 oz) 07/11/2022 9:25 P M INSURANCE BILLING CLERK Height 175.3 cm (5' 9 ) 01/18/2020 11:26 AM CDT Body Mass Index 26.49 01/18/2020 11:26 AM CDT Plan of Treatment Not on file Insurance [facility] MEDICARE ADVANTAGE HU[employer] CHOICE MEDICARE PPO [facility] OTHER Address: [address] [place] [address] [employer]PA [employer] CHO[employer] MEDICARE PPO IDPA [facility] MEDICARE ADVANTAGE Advance Directives For more information, please contact: [phone] * Full Code (Latest Code Status on File) Date Activated Date Inactivated Comments 07/11/2022 7:32 PM 07/12/2022 9:04 PM Care Teams Pad Machine Offbearer Relationship Specialty Start Date End Date Gray Mckeon PA [address] [place] [address] PCP - General 02/16/20 Joey Peng MD [phone] [place] [address] Surgeon Trauma Surgery 07/12/22
--- OUTSIDE RECORDS SUMMARY | 2024-08-08 13:44 | XMS_ITS | Data Portability ---
Author Organization [place] [facility] [employer], Main Office Address [address] [place] [address] Care Team Providers Care Auto Cleaner Name Role Phone PRAMOD TORRES Primary Care Provider PRAMOD TORRES Referring Provider [phone] Assessment Encounter Date Assessment Date Assessment LastModified by Organization Details LastModified Time 07/13/2024 07/13/2024 This note is dictated and transcribed by [employer]. Enterprise Applications Manager variances may occur. Despite proofreading, typographical errors may occur. Occasional wrong-word or '[id number]' substitutions may have occurred due to the inherent limitations of voice recording. Read the chart carefully and recognize, using context, where substitutions have occurred. lara Not available 07/13/2024 15:11:46 Plan of Treatment Reminders Order Date Submit Date Provider Last Modified By Organization Details Last Modified Time Details Appointments Establish ed Patient 15 2024 02:00P Elizabeth Monson DPM Not available Not available Not available Lab None recorded. Referral None recorded. Procedures None recorded. Surgeries None recorded. Imaging XR, foot, 3 or more view [address] [facility] [place], [address], [place], [address], 07/13/2024 15:15:11 Medication Orders None recorded. Patient TargetsNo targets recorded. Patient InstructionsNo instructions recorded. Reason for Referral None Reported. Results Created Date Observation Date Name Description Value Unit Range Abnormal Flag Note LastModifiedBy Organization Detail LastModifiedTime 07/14/19 25 XR, foot, 3 or more view No observ ation record ed. [email or web address] [facility] [place] [address], [place], [address], 07/13/2024 15:14:34 Result Notes None recorded. Problems Name Problem SNOMED Code Status Onset Date Resolution Date Notes Provider Name and Address Organization Details Recorded Time Pain in left foot 54116426583825 7 Active 2024 eKvin Monson DPM [address], [address], [place], [address], [facility] 15:11:59 Bunion 003397352 Active 2024 Kevin Monson DPM [address], [address], [place], [address], [employer] 15:12:02 Cigarette smoker 29852984 Active 2024 Kevin Monson DPM [address], [address], [place], [address], [facility] 15:12:13 Problem Notes None recorded. Procedures Surgical History Date Name Laterality Status Provider Name and Address Organization Details Recorded Time Back Surgeries completed Mayi eWathers [facility] 07/13/2024 14:32:58 Imaging Results Imaging Date Name Status LastModified by Organiz ation Details LastModified Time 07/13/2024 XR, foot, 3 or more view completed [email or web address] [facility] Dakota López [address] [address], [place], [address], 07/13/2024 15:14:34 Procedure Notes None recorded. Medical Equipment None Reported. Allergies Allergen ID Allergen Name Allergen Category Reaction Reaction Severity Criticality Documentation Date Start Date Code Code System Note Provider Name and Address Organization Details Recorded Time 33367 alendrona te sodium medicatio n Not available Not available Not available 07/13/202468470 2 RxNorm Mayi zaidi, [facility] 14:29:44 00023 tramadol medicatio n Not available Not available Not available 07/13/2024 59284 RxNorm Mayi zaidi [facility] 5 14:29:53 45261 beeswax medicatio n Not available Not available Not available 07/13/2024 1356 RxNorm Mayi zaidi [facility] 5 14:29:58 44959 kiwi fruit extract food Not available Not available Not available 07/13/2024 93713 01 RxNorm Mayi zaidi [facility] 5 14:30:11 30498 cortisone medicatio n Not available Not available Not available 07/13/2024 2878 RxNorm Mayi zaidi [facility] 14:30:24 Medications Name Sig Start Date Stop Date Status Note LastModified by Organization Details LastModified Time cyclobenzaprine 10 mg tablet active Not Available Not Available Not Available levothyroxine 75 mcg tablet active Not Available Not Available N ot Available gabapentin active Not Available Not Av ailable Not Available Vitals Date Recorded Heart rate Respiratory rate Oxygen saturation Oxygen saturation in Arterial blood by Pulse oximetry Body height Body mass index (BMI) Body weight Systolic blood pressure Diastolic blood pressure Provider Name and Address Organization Details Last Updated DateTime 5 71 /min 14 /min 99 % 99 % 175.26 cm 25.1 kg/m2 52416.7 g 126 mm[Hg] 77 mm[Hg] Mayi Weathers [facility] 5 14:07:22 Social History Question Answer Notes LastModified by Organizat ion Details LastModified Time Tobacco Smoking Status Current Every [facility] 07/13/2024 14:32:17 What Is Your Level Of Alcohol Consumption? Occasional Information not available 07/13/2024 What Is Your Level Of Caffeine Consumption? Occasional Information not available 07/13/2024 What Was The Date Of Your Most Recent Tobacco Screening? 07/13/2024 Information not available 07/13/2024 Have You Ever Been Counseled For Unhealthy Alcohol Use? No Information not available 07/13/2024 Do You Use Any Illicit Or Recreational Drugs? No Information not available 07/13/2024 Has Tobacco Cessation Counseling Been Provided? No Information not available 07/13/2024 Do You Or Have You Ever Used Any Other Forms Of Tobacco Or Nicotine? No Information not available 07/13/2024 Sex: Unknown Functional Status None recorded. Mental Status None recorded. Family History Relationship Description Onset Age of this Age Resolved Age Notes LastModified by Organization Details LastModified Time Unspecified Relation Diabetes mellitus Not available 2024 14:31:20 Unspecified Relation Osteoporosis Not available 07/01 14:31:53 Mother Arthritis Not available 07/13/2024 14:31:28 Mother Malignant neoplastic disease Not available 2024 14:31:39 Maternal Grandmother Malignant neoplastic disease Not available 2024 14:31:39 Medical History Condition Response ARTHRITIS Y OSTEOPOROSIS Y BACK / NECK PROBLEMS Y ANEMIA/BLOOD DISORDER Y Gynecological HistoryNo gynecological history recorded. Obstetrics History GPAL:G 0 P 0 0 0 0 Past Encounters Encounter ID Performer Location Encounter Start Date Encounter Closed Date Diagnosis/Indication Diagnosis SNOMED-CT Code Diagnosis ICD10 Code Diagnosis Note [id number] Kevin Monson DPM [facility] [place] [address] [place] [address] 07/13/2024 13:59:51 07/18/2024 09:46:46 Pain in left foot 5371442181 44010 M79.672 secondary to below Bunion 599732048 M21.61 9 left foot bunionrevi ewed treatment options in detailreco mmend at this point conservati ve offloading will obtain surgical clearance due to moderate to severe buniononce cleared will schedule surgery Cigarette smoker 3916185 7 F17.210 recommend discontinu e smokingSid e effects of smoking reviewed with the patientPat ient understand s with smoking she is at high risk for complicati on post surgery Health Concerns Section Related Observation LastModified by Organization Detai ls LastModified Time None Recorded Concern Status LastModified by Organization Details LastModified Time None Recorded Advance Directives Directive None Recorded Payers Encounter Date Sequence Insurance Name Policy Number Policy Urrutia Covered Member ID Urrutia Member ID Guarantor Name 07/13/2024 2 [place] [employer]PARTMENT [employer] PUBLIC AID Brooke Sami [id number] Brooke Saim 07/13/2024 1 [facility] (MEDICARE REPLACEMENT/A DVANTAGE - HMO) [id number] Brooke Wilkerson Sami [id number] Brooke Gallardo Notes Date Note Type Note Provider Name and Address Organization Details Recorded Time 07/13/2024 text/html Patient is a 53-year-old female she presents the office with complaints of left bunion pain. Patient states that she has tried conservative offloading as well as bunion splints and she continues have a worsening bunion which is moderate to severe. Patient has callusing of the plantar foot to which she is at high risk for developing wounds secondary to her bunion. Patient is a smoker she understands that smoking causes higher risk for complications. Patient denies any intermittent claudication. Patient states that she will work on discontinue smoking. Patient denies any other complaints. Kevin Monson DPM [address] [facility], [place] [address], [place], [address], [facility] [employer] [facility] 07/13/2024 15:20:07 OBGyn Episode No OBEpisode recorded.
--- OUTSIDE RECORDS SUMMARY | 2024-08-08 13:44 | XMS_ITS | Clinical Summary ---
Author Organization [facility] Address [address] [place] [address] Care Team Providers Care Fish Salter Name Role Phone Gray Mckeon Primary Care Provider [phone] Joey Peng MD [facility] [phone] Allergies Active Allergy Reactions Criticality Noted Date [...] Immunization Administration Dates Next Due Tdap 01/31/2019,05/22/2014 Surgical History Surgery Date Site/Laterality Comments CARPAL TUNNEL RELEASE ABDOMINOPLASTY BACK SURGERY x 2 FINGER FRACTURE SURGERY Medical History Medical History Date Comments PVD (peripheral vascular disease) Anemia Family History Medical History Relation Name Comments Back Pain Father Dementia Father Cancer Maternal Grandfather Diabetes Maternal Grandmother Peripheral vascular disease Maternal Grandmother Cancer Mother Alzheimer's disease Paternal Grandfather Dementia Paternal Grandmother Crohn's disease Sister Depression Sister Relation Name Status Comments Father Alive Maternal Grandfather Maternal Grandmother Mother Paternal Grandfather Paternal Grandmother Sister Alive Social History Tobacco Use Types Packs/Day Years Used Date Smoking Tobacco: Every Day Cigarettes Smokeless Tobacco: Never Tobacco Cessation:Ready to Q uit: Not Asked; Counseling Given: Not Answered Personal Safety Answer Date Recorded Getting School Help Needed Not on file 07/15 Comments Unknown Sex and Gender Information Value Date Recorded Sex Assigned at Not on file 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 Gender Identity Female 01/12/2020 7:31 AM CDT Sexual Orientation Straight 01/12/2020 7: 31 AM CDT Obstetrics History Last Filed Vital Signs Vital Sign Reading Time Taken Comments Blood Pressure 120/78 07/12/2022 3:49 PM CDT Pulse 84 07/12/2022 3:49 PM CDT Temperature 36.8 C (98.2 F) 07/12/2022 3:49 PM CDT Respiratory Rate 16 07/12/2022 3:49 PM CDT Oxygen Saturation 95% 07/12/2022 3:49 PM CDT Inhaled Oxygen Concentration - - Weight 81.4 kg (179 lb 6.4 oz) 07/11/2022 9:25 P M FLAVOR MAKER Height 175.3 cm (5' 9 ) 01/18/2020 11:26 AM CDT Body Mass Index 26.49 01/18/2020 11:26 AM CDT Plan of Treatment Health Maintenance Due Date Last Done Comments Breast Cancer Screening-Mammogram 1968 Cervical Cancer Screening 1968 Colon Cancer Screening-Colonoscopy 1968 Depression Screening 1968 Hepatitis C Screening 1968 Hepatitis B Screening 1986 Regular Well Visit/Exam 18-64 1986 Pneumococcal vaccine <65 (1 of 2 - PCV) 10/18/1987 Zoster Vaccine (1 of 2) 2018 Influenza Vaccine (Season Ended) 2025 DTaP/Tdap/Td Vaccine (3 - Td or Tdap) 01/31/202905/2018, 05/22/2014 Insurance [facility]PA [facility] MEDICARE ADVANTAGE HUMANA CHOICE MEDICARE PPO IDPA [employer] CHO[employer] MEDICARE PPO IDPA [facility] MEDICARE ADVANTAGE [facility] Address: [address] [address] [place] [address] Advance Directives For more information, please contact: [phone] * Full Code (Latest Code Status on File) Date Activated Date Inactivated Comments 07/11/2022 7:32 PM 07/12/2022 9:04 PM Care Teams Fish Salter Relationship Specialty Start Date End Date Gray Mckeon PA [address] [place] [address] PCP - General 02/16/20 Joey Peng MD [id number] [place] [address] Surgeon Trauma Surgery 07/12/22
[2024-08-08 14:08] LABS: Alanine Aminotransferase 47 U/L (14-59); Albumin Level 3.6 g/dL (3.4-5.0); Alkaline Phosphatase 100 U/L (46-116); Anion Gap 11 mmol/L (4-12); Aspartate Amino Transferase 28 U/L (15-37); Bilirubin,Total 0.5 mg/dL (0.00-1.00); Blood Urea Nitrogen 14 mg/dL (7-18); Calcium 9.2 mg/dL (8.5-10.1); Carbon Dioxide 25 mmol/L (21-32); Chloride 107 mmol/L (98-108); Cholesterol 181 mg/dL (0-200); Estimated Glomerular Filt Rate > 60; Free T4 Free Thyroxine 1.52 ng/dL (0.76-1.46); Glucose 100 mg/dL (70-99); HDL Direct 44 mg/dL (40-60); LDL Cholesterol Calculated 117 mg/dL (<130); Osmolality Calculated 296 mOsm/kg (285-295); Potassium 4.1 mmol/L (3.5-5.1); Sodium 143 mmol/L (136-145); Thyroid Stimulating Hormone 2.74 uIU/mL (0.36-3.74); Triglycerides 100 mg/dL (0-150)
== END 2024-08-08 12:38 | disposition home or self-care (01) ==
LOC: CHSLAB 12:41
PROVIDERS: PCP Family Medicine; Visit Provider Nurse Practitioner Adult Health
DX: Z01.818 Encounter for other preprocedural examination (principal); E03.9 Hypothyroidism, unspecified; D64.9 Anemia, unspecified; M19.90 Unspecified osteoarthritis, unspecified site; J44.9 Chronic obstructive pulmonary disease, unspecified; E78.5 Hyperlipidemia, unspecified; M21.611 Bunion of right foot; M79.671 Pain in right foot
CPT/HCPCS: 36415; 80053; 80061; 84439; 84443; 85025; 85610; 85730; 93005